=== PATIENT | female | born 1980 | race African-American/Black ===

== ENCOUNTER 2018-09-24 06:42 | Inpatient (IN) | payer SELFPAY ==
[2018-09-24 07:11] LABS: #Basophils 0.1 thou/uL (0.0-0.2); #Lymphocytes 2.1 thou/uL (1.20-3.40); #Monocytes 0.6 thou/uL (0.11-0.59); #Neutrophils 5.8 thou/uL (1.40-6.50); %Eosinophils 0.4 % (0.0-10.0); %Monocytes 7.2 % (0.0-10.0); %Neutrophils 67.4 % (42.0-75.0); Hemoglobin 14.9 g/dL (12.0-16.0); Mean Corpuscular HGB CONC 33.2 g/dL (32.0-36.0); Mean Corpuscular Hemoglobin 30.4 pg (27.0-31.0); Mean Corpuscular Volume 91.3 fL (78.0-98.0); Mean Platelet Volume 7.4 fL (7.4-10.4); Platelet Count 204 thou/uL (130-400); RBC Distribution Width 12.1 % (11.5-14.5); Red Blood Cell (RBC) Count 4.91 mill/uL (4.20-5.40); White Blood Cell (WBC) Count 8.7 thou/uL (4.8-10.8)
[2018-09-24 07:27] LABS: ALT (SGPT) 46 U/L (8-55); AST (SGOT) 84 U/L (5-34); Albumin 4.3 g/dL (3.5-5.0); Alkaline Phosphatase 80 U/L (40-150); Anion Gap 19 mmol/L (10-20); BUN (Urea Nitrogen) 5 mg/dL (7.0-18.7); Bilirubin, Total 0.4 mg/dL (0.2-1.2); CK (CPK) 898 U/L (29-168); Calc. Creatinine Clearance 0 mL/min (70-130); Calcium 9.5 mg/dL (7.8-10.44); Carbon Dioxide 20 mmol/L (22-29); Chloride 100 mmol/L (98-107); Estimated GFR-MDRD Greater than 90; Globulin 3.6 g/dL (2.4-3.5); Glucose 98 mg/dL (70-105); Potassium 3.8 mmol/L (3.5-5.1); Protein, Total 7.9 g/dL (6.0-8.3); Sodium 135 mmol/L (136-145)
[2018-09-24] MEDS ORDERED: Nitroglycerin 0.4 MG TAB 1 EACH ONE (07:35)
--- NOTE | 2018-09-24 07:42 | RAD ---
2 views chest: 09/24/2018 COMPARISON: 02/13/2006 HISTORY: Chest pain and shortness of breath FINDINGS: No pneumothorax, pleural fluid, focal consolidation, or alveolar edema. Stable dextroscolio sis noted at the thoracolumbar junction. IMPRESSION: No focal consolidation or alveolar edema.
[2018-09-24] MEDS ORDERED: Aspirin Chewable 81 MG TAB ONE (07:53)
[2018-09-24] MEDS ORDERED: Enoxaparin Sodium 100 MG/ML SYRINGE ONE ×2 (07:53)
[2018-09-24 08:08] LABS: BHCG - Serum Negative (NEGATIVE); Pregs Control Background? CLEAR/WHITE (CLR/WHITE); Pregs Control Bar Appear? YES (CONTROL BAR)
[2018-09-24] MEDS ORDERED: Nitroglycerin 2% Ointment 1 INCH/1 GM Packet ONE (08:18)
--- NOTE | 2018-09-24 08:43 | CT ---
CTA Angio Chest W WO Con History: Shortness of breath Comparison: Radiograph same day Findings: CT angiogram chest performed after the intravenous administration of contrast. 3-D renderin g provided. No proximal segmental pulmonary arterial filling defect. No pericardial effusion. Upper abdomen is unremarkable. The aortic contour is normal. The lungs are clear. No pneumothorax. No effusion. No airspace consolidation. Clavicles are intact. No acute osseous abnormality. Impression: No pulmonary arterial filling defect. No acute intrathoracic abnormality.
[2018-09-24] MEDS ORDERED: Metoprolol Tartrate 5 MG/5 ML VIAL ONE (08:56)
[2018-09-24] MEDS ORDERED: Nitroglycerin 50 MG/250 ML BOT 250 ML ONE ×2 (09:11→12:04)
[2018-09-24] MEDS ORDERED: Lidocaine 1% (PF) 30 ML VIAL ONE (09:15)
[2018-09-24] MEDS ORDERED: Verapamil 5 MG/2 ML VIAL ONE (09:30)
[2018-09-24] MEDS ORDERED: Heparin 10,000 UNITS/1 ML VIAL ONE (09:30)
[2018-09-24] MEDS ORDERED: Nitroglycerin 100MG/250ML BOT 250 ML ONE (09:30)
[2018-09-24] MEDS ORDERED: Communication Order-Pharmacy FS SCH (09:30)
[2018-09-24] MEDS ORDERED: hydrALAZINE 20 MG/ML VIAL ONE (09:55)
[2018-09-24] MEDS ORDERED: Midazolam HCl 2 mg/2 ml Vial ONE (09:57)
--- NOTE | 2018-09-24 11:14 | CON ---
DATE OF CONSULTATION: 09/24/2018 INDICATION FOR CONSULTATION: This is a 38-year-old female with significant hypertension, chest pain, and abnormal cardiac enzymes with continued bouts of chest pain. HISTORY OF PRESENT ILLNESS: This is a very unfortunate 38-year-old female, who has a history of hypertension, does not seek medical treatment, was told many years ago that she had hypertension. She has been seen in the emergency room before, it was treated and then, she was released, but she has had no followup since that time. She arrives in the emergency room today complaining of chest pain, which has been ongoing for several days. Her blood pressure was 222/149, after medication it was down to 219/145. We will continue to try to manage the blood pressure to get this down. She has been given nitroglycerin, Lovenox, aspirin, and metoprolol in the emergency room. She will be started on nitroglycerin drip. She describes the pain as being heavy and pressure radiating to the back area. EKG does not show any significant ST-segment elevation, but she does have small Q-waves inferiorly. Her troponin I of 6.6 with an MB of 72 and a CK was 898. PAST MEDICAL HISTORY: Significant for hypertension; right breast surgery; and left foot fracture, which she says never healed. She has been homeless at times. SOCIAL HISTORY: She has a boyfriend. She has had increased stress recently due to the boyfriend. She has 3 children, who live with their biological father. Tobacco, she smokes one to one and half packs per day. She drinks socially. She says about 6 to 12 beers on a day at times. She also has marijuana use, which she states she smokes every 2 or 3 weeks. ALLERGIES: NONE. MEDICATIONS: Prior to being seen in the emergency room were none. REVIEW OF SYSTEMS: She complains of increased urination at night. She has had occasional hematuria, occasional hemoptysis. She has had occasional hematemesis. Also, she has also had some hematochezia, at least this is what she is saying. She says she urinates about 7 to 8 times a night sometimes. She has had an episode of syncope about a year ago, she states while she was watching TV. She occasionally has dizziness. Otherwise, 12-point review of systems unremarkable except for what was noted in the history of present illness. PHYSICAL EXAMINATION: GENERAL: Reveals a middle-aged female. VITAL SIGNS: Her blood pressure is 219/145. Her heart rate is 78 and regular. HEENT: Shows head to be normocephalic and atraumatic. Carotid pulses are present. I do not hear any bruits. CHEST: Clear to auscultation. No rales, rhonchi, or wheezing. CARDIOVASCULAR: Reveals a regular rate and rhythm. Normal S1 and S2. I do not hear an S3 nor an S4 nor any significant murmurs, heaves, thrills, bruits, or rubs. ABDOMEN: Shows obesity. Positive bowel sounds are present. No organomegaly or masses are noted. Femoral pulses are present. EXTREMITIES: Showed no clubbing, cyanosis, edema. Pedal pulses are present. NEUROLOGIC: Appears to be intact. SKIN: Warm and dry. DIAGNOSTIC DATA: Her EKG as noted shows a normal sinus rhythm, no acute changes. She has small Q-waves inferiorly. IMPRESSION AND PLAN: 1. Continued chest pain in a patient with abnormal cardiac enzymes, hypertension, or tobacco abuse. She will be advised to undergo cardiac catheterization. It is definite to rule out evidence of underlying coronary artery disease. As I have explained to her the procedure and the risks to include bleeding, infection, possible myocardial infarction, CVA, renal insufficiency, allergic contrast reaction, and even the possibility of . She understands and agrees to proceed. We will plan for cardiac catheterization on urgent basis. 2. History of hypertension. This may need to be dealt with by the primary care service. We will continue to monitor medication. She will need most likely several medication in order to control the blood pressure. She may need financial assistance. 3. History of tobacco abuse. She needs to absolutely stop smoking. 4. History of illicit drug use. I would also advise she stops smoking marijuana. Further recommendations will depend on the results of the cardiac catheterization. Job ID: [id number]
[2018-09-24] MEDS ORDERED: Sodium Chloride 0.9% 1,000 ML IV SCH (12:15)
[2018-09-24] MEDS ORDERED: Nitroglycerin 50 MG/250 ML BOT 250 ML IVPB SCH (12:15)
[2018-09-24] MEDS ORDERED: Iopamidol 370 76% 100 ML VIAL ONE (14:32)
[2018-09-24 17:16] LABS: Troponin I 97.919 ng/mL (< 0.028)
--- NOTE | 2018-09-24 18:05 | PDOC.EVN ---
Event Note - Event Note Event Note: post cardiac cath with PCI. in ccu with nitrro drip for accelerated htn
--- NOTE | 2018-09-24 18:41 | HP ---
[facility] Call Admission for [facility]. HISTORY OF PRESENT ILLNESS: The patient referred to [facility] Hospitalist Service by [facility]. The patient presented with pressured chest pain, 3 days, off and on, radiating to the back of the neck, associated with shortness of breath, sweats, hot flashes. PAST MEDICAL HISTORY: Hypertension, on no medications. ALLERGIES: NO KNOWN DRUG ALLERGIES. PAST SURGICAL HISTORY: No past surgical history. FAMILY HISTORY: Mother had hypertension, CVA, coronary artery disease. SOCIAL HISTORY: Single. Full code. Smokes 1-1/2 packs a day. Smokes marijuana. Drinks occasional alcohol. REVIEW OF SYSTEMS: GENERAL: No dizziness, fainting, fever, or chills. EYES: Blurred vision this morning. No double vision or flashing lights. EAR, NOSE, AND THROAT: No ear pain or drainage. No nasal bleeding. No trouble swallowing. CARDIAC: Prior to this, no chest pain, orthopnea, or paroxysmal nocturnal dyspnea. RESPIRATION: No cough, wheezing, or asthma. GASTROINTESTINAL: Nausea and vomiting with present illness last night. No abdominal pain or diarrhea. GENITOURINARY: She says she has frequency. No blood or pain. MUSCULOSKELETAL: She has swelling in her arms and legs. No pain in her muscles or joints. NEUROLOGIC: No strokes, seizures, or focal weakness. PSYCHIATRIC: No anxiety or depression. SKIN: No bruising, bleeding, or rash. HEME/LYMPH: No tender or swollen lymph nodes in the axilla, inguinal, or cervical area. PHYSICAL EXAMINATION: VITAL SIGNS: Initial blood pressure 228/143, pulse 90, respirations 22, temperature 98.2. HEENT: Examination of her head, eyes, ears, nose, and throat; pupils are equal, round, and reactive to light. Extraocular movements are intact. Sclerae are white. Tympanic membranes are clear. Nose, clear. Oral mucous membranes are wet. NECK: No jugular venous distention, adenopathy, or bruits. CHEST: Clear to auscultation and percussion. HEART: Has a regular rate and rhythm. First and second heart sounds are clear. No murmurs or gallops. ABDOMEN: Soft. Bowel sounds are normal. No hepatosplenomegaly. No mass. No rebound. EXTREMITIES: Trace edema. No cyanosis or clubbing. PULSES: Carotid, radial, femoral, and dorsalis pedis pulses are intact. SKIN: Warm and dry. NEUROLOGIC: Cranial nerves 2 through 12 are intact. Deep tendon reflexes symmetric. Moves all extremities. DIAGNOSTIC DATA: EKG; regular sinus rhythm, no acute ST-T changes, reviewed by me. Chest x-ray; no cardiomegaly, CHF, or infiltrate, reviewed by me. LABORATORY DATA: CBC is normal. Activated clotting time 260. Troponin 6.0, followed by 97.9. CK-MB 72, creatine kinase 898. Sodium 135, potassium 3.8, chloride 100, CO2 of 20, BUN 5, creatinine 0.78. ADMITTING DIAGNOSES: [id number] myocardial infarction, hypertensive urgency, tobacco abuse. The patient is being taken urgently by Dr. Kunal Ayala to the cardiac cardiac catheterization technician. We will follow up. Job ID: [id number]
[2018-09-24 19:17] LABS: Critical Call Chem Troponin I RESULT DECREASING; Troponin I 82.511 ng/mL (< 0.028)
[2018-09-24] MEDS: hydrALAZINE 25 MG TAB PO SCH (19:37)
[2018-09-24] MEDS: Carvedilol 3.125 MG TAB PO SCH (19:38)
[2018-09-24] MEDS: Atorvastatin Calcium 40 MG TAB PO SCH (19:38)
[2018-09-24] MEDS: Ondansetron ODT 4 MG TAB PO PRN (19:45)
[2018-09-24] MEDS: Acetaminophen 325 MG TAB PO PRN (19:45)
[2018-09-24 19:47] VITALS: BMI 30.3
[2018-09-24] MEDS ORDERED: Sodium Chloride 0.9% 250 ML IV PRN (20:02)
[2018-09-24] MEDS: TICAGRELOR 90 MG TABLET PO SCH (20:51)
[2018-09-25 04:52] LABS: #Eosinphils 0.1 thou/uL (0.0-0.7); #Lymphocytes 1.6 thou/uL (1.20-3.40); #Monocytes 0.5 thou/uL (0.11-0.59); #Neutrophils 5.1 thou/uL (1.40-6.50); %Basophils 0.4 % (0.0-1.0); %Eosinophils 1.1 % (0.0-10.0); %Lymphocytes 21.9 % (21.0-51.0); %Monocytes 6.6 % (0.0-10.0); Hemoglobin 13.2 g/dL (12.0-16.0); Mean Corpuscular HGB CONC 32.7 g/dL (32.0-36.0); Mean Corpuscular Hemoglobin 29.9 pg (27.0-31.0); Mean Corpuscular Volume 91.4 fL (78.0-98.0); Mean Platelet Volume 7.7 fL (7.4-10.4); Platelet Count 171 thou/uL (130-400); RBC Distribution Width 12.3 % (11.5-14.5); Red Blood Cell (RBC) Count 4.42 mill/uL (4.20-5.40); White Blood Cell (WBC) Count 7.3 thou/uL (4.8-10.8)
[2018-09-25 05:14] LABS: ALT (SGPT) 53 U/L (8-55); AST (SGOT) 155 U/L (5-34); Albumin 3.6 g/dL (3.5-5.0); Alkaline Phosphatase 65 U/L (40-150); Anion Gap 14 mmol/L (10-20); BUN (Urea Nitrogen) 5 mg/dL (7.0-18.7); Bilirubin, Total 0.6 mg/dL (0.2-1.2); Calc. Creatinine Clearance 162 mL/min (70-130); Calcium 8.7 mg/dL (7.8-10.44); Carbon Dioxide 22 mmol/L (22-29); Chloride 100 mmol/L (98-107); Estimated GFR-MDRD Greater than 90; Globulin 3.1 g/dL (2.4-3.5); Glucose 98 mg/dL (70-105); Potassium 3.3 mmol/L (3.5-5.1); Protein, Total 6.7 g/dL (6.0-8.3); Sodium 133 mmol/L (136-145)
[2018-09-25] MEDS: Acetaminophen 325 MG TAB PO PRN (06:36)
[2018-09-25] MEDS ORDERED: Lisinopril 2.5 MG TAB PO SCH ×2 (09:00→10:45)
--- NOTE | 2018-09-25 09:15 | PDOC.PN ---
- Subjective Encounter Start Date: 09/25/18 Encounter Start Time: 09:13 Subjective: no chest pain , sob - Objective MAR Reviewed: Yes Vital Signs & Weight: Vital Signs (12 hours) Temp Pulse Ox 09/25/18 07:46 100 09/25/18 04:00 98.4 F 09/25/18 00:00 98.1 F Weight Weight 220 lb 10.923 oz Most Recent Monitor Data Heart Rate from ECG 80 NIBP 160/109 NIBP BP-Mean 126 Respiration from ECG 16 SpO2 100 I&O: 09/24/18 09/25/18 09/26/18 06:59 06:59 06:59 Intake Total 2072.4 Output Total 1172 Balance 900.4 Result Diagrams: 09/25/18 04:43 09/25/18 04:43 Radiology Reviewed by me: Yes (increased R/S ratio and inf changes consistant with inf-post infarct) Phys Exam - Physical Examination Neck: no JVD Respiratory: clear to auscultation bilateral Cardiovascular: RRR, no significant murmur Gastrointestinal: soft, positive bowel sounds Musculoskeletal: no edema Dx/Plan (1) NSTEMI (non-ST elevated myocardial infarction) Code(s): I21.4 - NON-ST ELEVATION (NSTEMI) MYOCARDIAL INFARCTION Status: Acute (2) Hypertensive urgency Code(s): I16.0 - HYPERTENSIVE URGENCY Status: Acute (3) Tobacco abuse Code(s): Z72.0 - TOBACCO USE Status: Acute - Plan on iv nitro for BP -: EKG pending -: on coreg, ELEAZAR . statin -: discuss with card * .
[2018-09-25] MEDS: hydrALAZINE 25 MG TAB PO SCH ×3 (09:34→20:18)
[2018-09-25] MEDS: TICAGRELOR 90 MG TABLET PO SCH ×2 (09:34→20:17)
[2018-09-25] MEDS: Carvedilol 3.125 MG TAB PO SCH (09:35)
[2018-09-25 10:00] LABS: Cardiac Risk 2.6 (Less than 4.5)
[2018-09-25] MEDS ORDERED: Carvedilol 3.125 MG TAB PO SCH (10:45)
[2018-09-25] MEDS: Aspirin 81 mg Enteric Coated Tablet PO SCH (10:53)
[2018-09-25] MEDS: Nicotine 21 MG PATCH TOP SCH (10:54)
--- NOTE | 2018-09-25 12:56 | PDOC.CTH ---
Cardiology Progress Note - Subjective The pt seen and examined. No overnight events. No cardiac complaints. - Objective Vital Signs Temp Pulse Pulse Pulse BP BP BP 09/25/18 12:00 98.5 F 09/25/18 10:53 94 139/101 H 09/25/18 09:46 90 110 H 154/102 H 137/87 09/25/18 09:34 101 H 141/117 H 09/25/18 07:46 09/25/18 07:00 98.1 F 09/25/18 04:00 98.4 F Pulse Ox Pulse Ox Pulse Ox 09/25/18 12:00 09/25/18 10:53 09/25/18 09:46 100 100 09/25/18 09:34 09/25/18 07:46 100 09/25/18 07:00 09/25/18 04:00 Weight 220 lb 10.923 oz 09/24/18 09/25/18 09/26/18 06:59 06:59 06:59 Intake Total 2072.4 Output Total 1172 100 Balance 900.4 -100 - Physical Examination General/Neuro: alert & oriented x3 Neck: no JVD present Lungs: CTA Heart: RRR Abdomen: soft Extremities: other: (No edema) - Telemetry Telemetry Rhythm: SR - Labs Result Diagrams: 09/25/18 04:43 09/25/18 04:43 Troponin/CKMB CK-MB (CK-2) 72.0 ng/mL (0-6.6) H* 09/24/18 06:59 Troponin I 82.511 ng/mL (< 0.028) H* 09/24/18 18:27 - Assessment/Plan 1. CAD with s/p LHC with stent x2 in Lt Cx on 09/24/2018 - stable; on Bblocker, ELEAZAR, ASA 81mg qd, and Brilinta 90mg BID; Ezymes positive for WI. 2. HTN urgency - still on NTG drip after increasing Coreg and Lisinopril; will increase Hydralazine 25mg from BID to TID from today 3. Tobacco and ETOH abuse - strongly recommend smoking and ETOH cessation 4. Illicit drug abuse - cessation education given MAR reviewed PPt. seen and eval. by me. She denies cardiac symptoms. The CIE'e are significantly elevated compatible with WI. This is an inferior posterior WI due to the occluded L-circumflex. Continue Brilinta. She has a stenosis in the RCA that may need intervention in the future. Hopefully this will stabalize with medical management if she remains compliant. Chest clear. RRR. Review of Systems - Review of Systems Constitutional: reports: no symptoms reported EENTM: reports: no symptoms reported Respiratory: reports: no symptoms reported Cardiac (ROS): reports: no symptoms reported ABD/GI: reports: no symptoms reported : reports: no symptoms reported Musculoskeletal: reports: no symptoms reported
[2018-09-25] MEDS: Ondansetron ODT 4 MG TAB PO PRN (15:14)
[2018-09-25] MEDS: Carvedilol 6.25 MG TAB PO SCH (20:18)
[2018-09-25] MEDS: Atorvastatin Calcium 40 MG TAB PO SCH (20:18)
[2018-09-26] MEDS: TICAGRELOR 90 MG TABLET PO SCH (08:50)
[2018-09-26] MEDS: Aspirin 81 mg Enteric Coated Tablet PO SCH (08:50)
[2018-09-26] MEDS: Carvedilol 6.25 MG TAB PO SCH (08:50)
[2018-09-26] MEDS: hydrALAZINE 25 MG TAB PO SCH ×2 (08:58→14:23)
[2018-09-26] MEDS ORDERED: Lisinopril 5 MG TAB PO SCH (09:00)
--- NOTE | 2018-09-26 09:00 | PDOC.CTH ---
Cardiology Progress Note - Subjective The pt seen and examined. No overnight events. No cardiac complaints. - Objective Vital Signs Temp Pulse Resp BP Pulse Ox 09/26/18 08:04 98.1 F 87 18 119/57 L 98 09/26/18 03:50 97.9 F 94 14 133/92 H 97 Weight 220 lb 10.923 oz 09/25/18 09/26/18 09/27/18 06:59 06:59 06:59 Intake Total 2072.4 1244 Output Total 1172 570 Balance 900.4 674 - Physical Examination General/Neuro: alert & oriented x3 Neck: no JVD present Lungs: CTA Heart: RRR Abdomen: soft Extremities: other: (No edema) - Telemetry Telemetry Rhythm: SR - Labs Result Diagrams: 09/25/18 04:43 09/25/18 04:43 Troponin/CKMB CK-MB (CK-2) 72.0 ng/mL (0-6.6) H* 09/24/18 06:59 Troponin I 82.511 ng/mL (< 0.028) H* 09/24/18 18:27 - Assessment/Plan 1. CAD , s/p acute posterior TN with s/p LHC with stent x2 in Lt Cx and stenosis in RCA on 09/24/2018 - stable; on Bblocker, ELEAZAR, ASA 81mg qd, and Brilinta 90mg BID; She has a stenosis in the RCA that may need intervention in the future 2. HTN urgency - stable; the pt was strongly recommended to cont her meds 3. Tobacco and ETOH abuse - strongly recommend smoking and ETOH cessation 4. Illicit drug abuse - cessation education given MAR reviewed * From Cardiac standpoint, the pt is stable to d/c home. She will f/u with Dr Ayala' office within 4 wks. Pt. seen and eval. by me.Iagree with the A/P by the [facility]IDE [facility]TER. Chest clear. RRR. No edema. Review of Systems - Review of Systems Constitutional: reports: no symptoms reported EENTM: reports: no symptoms reported Respiratory: reports: no symptoms reported Cardiac (ROS): reports: no symptoms reported ABD/GI: reports: no symptoms reported : reports: no symptoms reported Musculoskeletal: reports: no symptoms reported
[2018-09-26] MEDS ORDERED: Nitroglycerin 0.4 MG TAB (25 Tab Bottle) SL PRN (09:06)
[2018-09-26] MEDS: Nicotine 21 MG PATCH TOP SCH (09:57)
[2018-09-26 16:35] VITALS: BP 126/67; TEMP 98.3
--- NOTE | 2018-09-27 01:37 | DIS ---
DATE OF ADMISSION: 09/24/2018 DATE OF DISCHARGE: 09/26/2018 DISCHARGE DIAGNOSES: As of the followin. Non ST-elevation myocardial infarction. 2. Hypertensive urgency. 3. Tobacco abuse. HOSPITAL COURSE: The patient is a 38-year-old female, who initially presented to the hospital on 09/24. Please refer to H and P for further details with complaints of chest pain. The patient at this time was found to be hypertensive and also had some elevated troponins and some EKG changes. At this time, she was seen by Cardiology. She initially underwent a CTA to rule out any PE, however, there was no PE. The patient did undergo a cardiac catheterization, which required intervention. The patient had successful PCI, PTCA stent to the mid circumflex and also to the RCA, EF of 50%. The patient continues to improve. Her vital signs have been stable. She will follow up with primary care and Cardiology as an outpatient. Due to her insurance purposes, I have provided all her medications. Brilinta will be provided by Cardiology. PHYSICAL EXAMINATION: VITAL SIGNS: 97.5, 79, 17, 100% on room air, 120/76. GENERAL: She is awake, alert, and oriented x3. Does not appear in distress. CV: S1, S2 present. No murmurs, rubs, or gallops. ABDOMEN: Soft and nontender. Bowel sounds are present x2. MEDICATIONS: Her home medications are as of the following. She is going to be on, 1. Brilinta 90 mg b.i.d. provided by the corrugated sheet material sheeter. 2. Hydralazine 25 mg t.i.d. 3. Lisinopril 5 mg daily. 4. Carvedilol 6.25 b.i.d. 5. Atorvastatin 40 mg at bedtime. 6. Aspirin 81 mg daily. The patient was educated on smoking cessation and also on stopping alcohol use. Job ID: [id number]
--- NOTE | 2018-09-27 21:15 | EKG ---
Test Reason : Blood Pressure : / mmHG Vent. Rate : 086 BPM Atrial Rate : 086 BPM P-R Int : 132 ms QRS Dur : 090 ms QT Int : 430 ms P-R-T Axes : 064 -04 170 degrees QTc Int : 514 ms Normal sinus rhythm with sinus arrhythmia Possible Left atrial enlargement Inferior infarct (cited on or before 24-SEP-2018) Prolonged QT Abnormal ECG When compared with ECG of 24-SEP-2018 12:57, (Unconfirmed) Questionable change in initial forces of Inferior leads T wave inversion now evident in Inferior leads Confirmed by Mary CASTREJON ([id number]) on 09/27/2018 9:15:44 PM Referred By: Confirmed By:Mary CASTREJON
--- NOTE | 2018-09-28 16:09 | EKG ---
Test Reason : Blood Pressure : / mmHG Vent. Rate : 078 BPM Atrial Rate : 084 BPM P-R Int : 132 ms QRS Dur : 090 ms QT Int : 406 ms P-R-T Axes : 049 -11 079 degrees QTc Int : 462 ms Normal sinus rhythm with sinus arrhythmia Possible Left atrial enlargement Nonspecific ST and T wave abnormality Abnormal ECG No ST elevation/LA Confirmed by CHETNA GODOY M.D. ([id number]), digital editor MAYRA BETTENCOURT ([id number]) on 09/28/2018 4:09:23 PM Referred By: Confirmed By:CHETNA GODOY M.D.
--- NOTE | 2018-09-28 16:10 | EKG ---
Test Reason : Blood Pressure : / mmHG Vent. Rate : 081 BPM Atrial Rate : 081 BPM P-R Int : 142 ms QRS Dur : 086 ms QT Int : 406 ms P-R-T Axes : -05 052 -11 degrees QTc Int : 471 ms Normal sinus rhythm Cannot rule out Inferior infarct , age undetermined Abnormal ECG #2 unchanged Confirmed by WALT Estes, CHETNA ([id number]), sound editor MAYRA BETTENCOURT ([id number]) on 09/28/2018 4:09:49 PM Referred By: Confirmed By:CHETNA GODOY M.D.
== END 2018-09-26 17:37 | disposition home or self-care (01) | DRG 249 ==
LOC: ERS 06:42 → SDC 09:55 → CCU 11:53 → 2NO 09-25 18:15
PROVIDERS: ADMIT Internal Medicine Cardiovascular Disease; ATTEND Internal Medicine Cardiovascular Disease
PROC: 02703EZ Dilation of Coronary Artery, One Artery with Two Intraluminal Devices, Percutaneous Approach (ICD-10-PCS; principal; 2018-09-24)
PROC: 4A023N7 Measurement of Cardiac Sampling and Pressure, Left Heart, Percutaneous Approach (ICD-10-PCS; 2018-09-24)
PROC: B2151ZZ Fluoroscopy of Left Heart using Low Osmolar Contrast (ICD-10-PCS; 2018-09-24)
PROC: B2111ZZ Fluoroscopy of Multiple Coronary Arteries using Low Osmolar Contrast (ICD-10-PCS; 2018-09-24)
DX: I21.4 Non-ST elevation (NSTEMI) myocardial infarction (principal); I16.0 Hypertensive urgency; I10 Essential (primary) hypertension; F17.210 Nicotine dependence, cigarettes, uncomplicated; F12.90 Cannabis use, unspecified, uncomplicated; I25.10 Atherosclerotic heart disease of native coronary artery without angina pectoris
CPT/HCPCS: 36415; 71046; 71275; 80053; 80061; 82550; 82553; 84484; 84703; 85025; 85347; 92928; 93005; 93010; 93458; 93798; 94760; 96372; 96374; 96375; 99152; 99153; C1769; C1876; J0360; J1644; J1650; J2001; J2250; Q0162; Q9967

== ENCOUNTER 2019-01-16 20:47 | Inpatient (IN) | payer SELFPAY ==
[~2019-01-16 20:47] MED LIST: ISOVUE-370 76%-LOCM 1 ML ONE
[2019-01-16] MEDS ORDERED: Fentanyl 100 MCG/2 ML VIAL ONE (20:52)
[2019-01-16] MEDS ORDERED: fentaNYL Citrate/PF 2,000 MCG in Sodium Chloride 0.9% 60 ML IV SCH (20:55)
[2019-01-16 21:01] LABS: Actual Bicarbonate (HCO3a) 16.4 mEq/L (22-28); Analyzer IN Cardio ER; Base Excess (BEa) -9.4 mEq/L (-2.0 to +3.0); CO2 Tension 35.6 mmHg (35.0-45.0); Calcium, Ionized 1.11 mmol/L (1.12-1.30); Carboxyhemoglobin (COHb) 1.5 gm% (0.0-3.0); Hemoglobin (Hb) 13.3 g/dL (12.0-16.0); O2 Tension (PaO2) 338.5 mmHg (80.0-100.0); Potassium - ABG Lab 3.73 mmol/L (3.70-5.30); pH, Arterial 7.28 (7.35-7.45)
--- NOTE | 2019-01-16 21:06 | RAD ---
RADIOGRAPH CHEST 1 VIEW: Supine DATE: 01/16/2019 HISTORY: 38-year-old female in respiratory distress and ventricular fibrillation. Status post intubation. FINDINGS: There is no pulmonary edema. There is an endotracheal tube with distal tip at the level of the clavic ular heads, 8 cm superior to the jesus. There is an esophagogastric tube which courses inferior to the diaphragm, distal tip outside of the [id number]. Supine positioning makes this study insensiti ve for the detection of pneumothorax. There is an airspace opacity at the right lung base silhouetting the right hemidiaphragm. This could be atelectasis, pneumonia, or aspiration. IMPRESSION: 1. Right lower lobe airspace opacity. 2. Status post intubation with endotracheal tube (at thoracic inlet) and esophagogastric tube.
[2019-01-16 21:14] LABS: #Basophils 0.1 thou/uL (0.0-0.2); #Eosinphils 0.1 thou/uL (0.0-0.7); #Lymphocytes 1.4 thou/uL (1.20-3.40); #Monocytes 0.2 thou/uL (0.11-0.59); #Neutrophils 1.9 thou/uL (1.40-6.50); %Basophils 1.4 % (0.0-1.0); %Eosinophils 2.1 % (0.0-10.0); %Lymphocytes 37.9 % (21.0-51.0); %Monocytes 6.2 % (0.0-10.0); %Neutrophils 52.4 % (42.0-75.0); Hemoglobin 13.1 g/dL (12.0-16.0); Mean Corpuscular HGB CONC 33.9 g/dL (32.0-36.0); Mean Corpuscular Hemoglobin 30.7 pg (27.0-31.0); Mean Corpuscular Volume 90.6 fL (78.0-98.0); Mean Platelet Volume 7.3 fL (7.4-10.4); Platelet Count 166 thou/uL (130-400); RBC Distribution Width 12.4 % (11.5-14.5); Red Blood Cell (RBC) Count 4.28 mill/uL (4.20-5.40); White Blood Cell (WBC) Count 3.7 thou/uL (4.8-10.8)
[2019-01-16 21:31] LABS: Bilirubin Negative (Negative); Blood, Urine Trace (Negative); Clarity Clear (Clear); Glucose, Urine (Dipstick) Normal (Negative); Leukocyte Negative Leu/uL (Negative); Mucous/LPF Rare LPF (<2+); Nitrite Negative (Negative); Protein, Urine (Dipstick) 100 mg/dL (Neg-Trace); RBC/HPF 0-3 HPF (0-3); Squamous Epithelial 0-3 HPF (0-3)
[2019-01-16 21:37] LABS: Bacteria/HPF Rare-Few HPF (None Seen)
[2019-01-16 21:38] LABS: Amphetamine Not Detected (NotDetected); Barbiturates Screen Not Detected (NotDetected); Benzodiazepine Screen Not Detected (NotDetected); Cocaine Metabolite Screen Not Detected (NotDetected); Medtox Control Line Valid? VALID (VALID); Medtox Reader # READER 4; Methadone Not Detected (NotDetected); Methamphetamine Detected (NotDetected); Opiate Screen Not Detected (NotDetected); Oxycodone Screen Not Detected (NotDetected); Phencyclidine (PCP) Not Detected (NotDetected); THC/Cannabinoid Screen Detected (NotDetected); Tricyclic Screen Not Detected (NotDetected)
[2019-01-16 21:39] LABS: ALT (SGPT) 272 U/L (8-55); AST (SGOT) 436 U/L (5-34); Acetaminophen Less than 6.0 mcg/mL (10.0-30.0); Albumin 3.4 g/dL (3.5-5.0); Alcohol Less than 10 mg/dL (Less than 10); Alkaline Phosphatase 63 U/L (40-110); Anion Gap 19 mmol/L (10-20); BUN (Urea Nitrogen) 8 mg/dL (7.0-18.7); Bilirubin, Total 0.5 mg/dL (0.2-1.2); CK (CPK) 97 U/L (29-168); Calc. Creatinine Clearance 0 mL/min (70-130); Calcium 8.1 mg/dL (7.8-10.44); Carbon Dioxide 19 mmol/L (22-29); Chloride 101 mmol/L (98-107); Estimated GFR-MDRD Greater than 90; Globulin 2.6 g/dL (2.4-3.5); Glucose 76 mg/dL (70-105); Potassium 3.8 mmol/L (3.5-5.1); Salicylate Less than 8.0 mg/dL (15.0-30.0); Sodium 135 mmol/L (136-145)
--- NOTE | 2019-01-16 21:51 | CT ---
CT BRAIN NONCONTRAST: DATE: 01/16/2019 HISTORY: 38-year-old female with altered mental status, status post fall. FINDINGS: There is no evidence of acute intra-axial or extra-axial hemorrhage. There is no midline shift or any other mass effect. There is no extra-axial fluid collection. There is no evidence of obstructive hydrocephalus. Calvarium is intact. The upper half of the left maxillary sinus is totally opacified, contiguous with severely, nearly totally opacified nasal cavity. The lower halves of the maxillary sinuses are not included on the images. There is severe mucosal thickening throughout multiple bilate ral ethmoid air cells. There is severe almost total opacification of left sphenoid air cell. Multiple small polyps are present in the right maxillary sinus. Right sphenoid air cell is relatively clear. Bilateral tympanomastoid cavities are grossly clear. The nasopharyngeal airway is totally opacified with fluid, secretions. IMPRESSION: 1. No acute intracranial findings. 2. Paranasal sinus disease. 3. Secretions filling the nasopharyngeal airway.
--- NOTE | 2019-01-16 21:53 | CT ---
CT CERVICAL SPINE NONCONTRAST: DATE: 01/16/2019 HISTORY: cervical trauma FINDINGS: There are no jumped or perched facets. There is no evidence of acute fracture. The vertebral body hei ghts are maintained. There is no prevertebral soft tissue swelling. IMPRESSION: No evidence of acute fracture or acute traumatic subluxation.
[2019-01-16 21:59] LABS: CKMB 1.7 ng/mL (0-6.6)
[2019-01-16 22:05] LABS: Puncture Site LRA
[2019-01-16] MEDS ORDERED: Piperacillin/Tazobactam 4.5 GM VIAL ONE (22:07)
[2019-01-16] MEDS ORDERED: Sodium Chloride 0.9% 100 ML ONE (22:07)
--- NOTE | 2019-01-16 22:13 | CT ---
CT ABDOMEN WITH CONTRAST CT PELVIS WITH CONTRAST: DATE: 01/16/2019 HISTORY: 38-year-old female with distended abdomen. Unconscious. TECHNIQUE: IV injection of iodinated contrast media: Administered Oral contrast media:Not administered FINDINGS: Liver: No focal solid mass. Spleen: No splenomegaly.. Pancreas: No mass or surrounding fat stranding.. Adrenals: No mass.. Kidneys: No hydronephrosis or enhancement abnormalities.. Ureters: No dilation. Bladder: Empty with Abarca catheter. Abdominal aorta: No aneurysm. Small bowel: No dilation. Colon: No adjacent fat stranding. Appendix: No dilation or adjacent fat stranding.. Free air: None. Free fluid: None. Esophagogastric tube distal tip at proximal gastric body. Moderate size region of opacification at posterior base of right lower lobe. Much smaller such densit y at posterior base of left lower lobe. 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 IMPRESSION: 1. No major acute pathology identified within abdominal cavity or pelvic cavity.. 2. 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 Recomme nd general surgery consultation on nonemergent basis. 3. Moderate sized consolidation at posterior base of right lower lobe. This could be atelectasis, asp iration, or pneumonia. Atelectasis is favored.
[2019-01-16] MEDS ORDERED: Propofol 1,000 MG/100 ML VIAL IV ONE (22:33)
[2019-01-16 23:03] LABS: BHCG - Serum Negative (NEGATIVE); Pregs Control Background? CLEAR/WHITE (CLR/WHITE); Pregs Control Bar Appear? YES (CONTROL BAR)
--- NOTE | 2019-01-16 23:20 | PDOC.FPRHP ---
- History of Present Illness Chief Complaint: ROSC s/p vfib History of Present Illness: Patient is a 38F with PMHx of 2 cardiac stents s/p OK in September 2018, HTN, HLD that presented to the ED via EMS with ROSC s/p vfib and shock. Patient is intubated and sedated throughout the encounter. Patients boyfriend reports that she has been sick for about 1 week with a cough , subjective fever, and chills. He states that he went to the store today to buy cough syrup and when he got back, patient took a large gulp of the cough syrup before her muscles tensed and then she slumped downward to the floor. He states that he called 911, did not feel a pulse, and began CPR before EMS arrived. Per report patient did not have pulse when EMS arrived, she was quickly hooked up to the monitor, found to be in vfib, and shocked. She reportedly then achieved ROSC and was quickly intubated. Patient has known hx of marijuana use, but when boyfriend asked about UDS positive for meth, he denied knowing that she used any other substances than marijuana. Per patient's boyfriend patient's parents are both , she had one child that was taken in a CPS case 6-7 years ago. He states that she has a sister, but she is estranged. He was counseled to try to find her number so she could be contacted. ED Course: 2mg lorazepam, 5mcg/kg/min diprivan, fentanyl, 1L NS (s/p 800ml via EMS), 750mg levaquin, 1 g vanc - Allergies/Adverse Reactions Allergies Allergy/AdvReac Type Severity Reaction Status Date / Time No Known Allergies Allergy Verified 01/17/19 02:23 - Home Medications Medication Instructions Recorded Confirmed Type Carvedilol [Coreg] 6.25 mg PO BID #60 tab 09/26/18 01/17/19 Rx Lisinopril [Zestril] 5 mg PO DAILY #30 tab 09/26/18 01/17/19 Rx hydrALAZINE [Apresoline] 25 mg PO TID #90 tab 09/26/18 01/17/19 Rx Clopidogrel Bisulfate [Plavix] 1 tab PO DAILY 01/17/19 01/17/19 History - History PMHx:2 cardiac stents s/p OK in September 2018, HTN, HLD PSHx: x1 FHx: mother-aortic aneurysm Social: 1ppd smoker, drinks 3-4 40oz malt liquor/day per boyfriend, uses marijuana - Review of Systems ROS unobtainable: due to endotracheal tube General: reports: fever/chills Respiratory: reports: cough, congestion Gastrointestinal: denies: nausea, vomiting, diarrhea - Vital signs BP: [224/153] HR: [113] RR: [18] Tmax: [97.6] Pox: [100]% on [ventilator] Wt: [97.7kg] - Physical Exam Constitutional: other (intubated) HEENT: PERRLA, MMM Neck: supple, trachea midline Chest: no lesions Heart: normal S1/S2, pulses present, other (tachycardic) Lungs: other (course breath sounds throughout, intubated) Abdomen: soft Musculoskeletal: normal structure, normal tone Neurological: other (GCS 3T) Skin: no rash/lesions, good turgor, other (feet dirty bilaterally) Heme/Lymphatic: no unusual bruising or bleeding, no purpura FMR H&P: Results - Labs Result Diagrams: 01/16/19 21:06 01/16/19 21:06 Lab results: WBC 3.7 thou/uL (4.8-10.8) L 01/16/19 21:06 Hgb 13.1 g/dL (12.0-16.0) 01/16/19 21:06 Hct 38.8 % (36.0-47.0) 01/16/19 21:06 MCV 90.6 fL (78.0-98.0) 01/16/19 21:06 Plt Count 166 thou/uL (130-400) 01/16/19 21:06 Neutrophils % 52.4 % (42.0-75.0) 01/16/19 21:06 ABG pH 7.28 (7.35-7.45) L 01/16/19 20:56 ABG pCO2 35.6 mmHg (35.0-45.0) 01/16/19 20:56 ABG pO2 338.5 mmHg (80.0-100.0) H 01/16/19 20:56 Sodium 135 mmol/L (136-145) L 01/16/19 21:06 Potassium 3.8 mmol/L (3.5-5.1) 01/16/19 21:06 Chloride 101 mmol/L (98-107) 01/16/19 21:06 Carbon Dioxide 19 mmol/L (22-29) L 01/16/19 21:06 BUN 8 mg/dL (7.0-18.7) 01/16/19 21:06 Creatinine 0.81 mg/dL (0.6-1.1) 01/16/19 21:06 Glucose 76 mg/dL (70-105) 01/16/19 21:06 Lactic Acid 3.3 mmol/L (0.5-2.2) H 01/16/19 22:43 Calcium 8.1 mg/dL (7.8-10.44) 01/16/19 21:06 Total Bilirubin 0.5 mg/dL (0.2-1.2) 01/16/19 21:06 AST 436 U/L (5-34) H 01/16/19 21:06 ALT 272 U/L (8-55) H 01/16/19 21:06 Alkaline Phosphatase 63 U/L (40-110) 01/16/19 21:06 Creatine Kinase 97 U/L (29-168) 01/16/19 21:06 CK-MB (CK-2) 1.7 ng/mL (0-6.6) 01/16/19 21:06 Serum Total Protein 6.0 g/dL (6.0-8.3) 01/16/19 21:06 Albumin 3.4 g/dL (3.5-5.0) L 01/16/19 21:06 Urine Ketones 80 mg/dL (Negative) A 01/16/19 21:12 Urine Blood Trace (Negative) A 01/16/19 21:12 Urine Nitrite Negative (Negative) 01/16/19 21:12 Ur Leukocyte Esterase Negative Rizwana/uL (Negative) 01/16/19 21:12 Urine RBC 0-3 HPF (0-3) 01/16/19 21:12 Urine WBC 4-6 HPF (0-3) A 01/16/19 21:12 Ur Squamous Epith Cells 0-3 HPF (0-3) 01/16/19 21:12 Urine Bacteria Rare-Few HPF (None Seen) 01/16/19 21:12 - EKG Interpretation EKG: previous inferior/lateral infarct present, repeat ekg shows nsr - Radiology Interpretation Chest x-ray Status: report reviewed by me (RLL pna vs atelectasis) CT scan - abdomen Status: report reviewed by me (severe stenosis of celiac artery, moderate consolidation at RLL) FMR H&P: A/P - Problem List (1) Ventricular fibrillation Current Visit: Yes Status: Acute Code(s): I49.01 - VENTRICULAR FIBRILLATION (2) Methamphetamine abuse Current Visit: Yes Status: Acute Code(s): F15.10 - OTHER STIMULANT ABUSE, UNCOMPLICATED (3) Marijuana abuse Current Visit: Yes Status: Acute Code(s): F12.10 - CANNABIS ABUSE, UNCOMPLICATED (4) HTN (hypertension) Current Visit: Yes Status: Acute Code(s): I10 - ESSENTIAL (PRIMARY) HYPERTENSION (5) History of heart artery stent Current Visit: Yes Status: Acute Code(s): Z95.5 - PRESENCE OF CORONARY ANGIOPLASTY IMPLANT AND GRAFT (6) Tobacco abuse Current Visit: No Status: Acute Code(s): Z72.0 - TOBACCO USE (7) Cardiac arrest Current Visit: Yes Status: Acute Code(s): I46.9 - CARDIAC ARREST, CAUSE UNSPECIFIED - Plan Patient is a 38F with PMHx of 2 cardiac stents s/p OK in September 2018, HTN, HLD admitted for ROSC s/p vfib and cardiac arrest #Cardiac arrest s/p vfib and ROSC -Unclear etiology at this time. UDS+ meth/thc, CXR suspicious for RLL pna, patient has hx of alcohol abuse and alcohol undetectable on admission -Blood, urine cultures pending -continue iv levaquin vanc for suspected RLL pna -Repeat EKG shows evidence of previous infarct, nsr without signs of acute ACS. Trop after CPR indeterminate, continue to trend trops and monitor with repeat EKG -Consult critical consult, appreciate recs -cardiology consult, appreciate recs -Palliative consult for help with discussing with boyfriend about possible medical decision maker #HTN -IV hydralazine, labetalol prn for now -Restart home meds when appropriate #Hx of cardiac stents -patient takes clopidogrel, will try to give through ng tube at this time -appreciate cardiology recs #Etoh abuse -ASE protocol #UDS +: Meth/marijuana -boyfriend denies knowing anything about meth use -will continue to monitor Diet: NPO DVT ppx: lovenox Dispo: critical care for further monitoring, cardiology consult, ase protocol for alcohol withdrawal FMR H&P: Upper Level - Pertinent history 38 yo F here via EMS s/p ROSC after defibrillation and intubation by EMS en route. Per boyfriend, she has had a fever and cough for the past few days. She was lying in bed when she tensed up and then became unconscious. He immediately started CPR and called EMS. EMS found the patient to be in Vfib and provided 1 shock which achieved ROSC. Upon arrival in ED, vitals where stable. Imaging was concerning for RLL PNA. Blood and urine cultures were drawn and pt was given Vanc and Levaquin. Other lab abnormalities were significant for elevated LFT and indeterminate trop. EKG had no ST or T wave changes. Per her boyfriend, she drinks 2-3 40 oz beers daily. UDS was positive for THC and methamphetamine. PMHx CAD Previous NSTEMI HTN Surgical hx Cardiac cath 09/25/18 with circumflex and RCA stent Social Hx of tobacco abuse, cigarette use, marijuana use, and methamphetamine use - Pertinent findings See management internship note for full ROS, PE, vitals, and labs ROS per boyfriend. General complains of fever CV Denies CP or palpitation Resp complains of cough GI denies n/v/d/c or abdominal pain denies increased frequency or dysuria PE General intubated and sedated HEENT NCAT CV tachycardic, no murmur Resp coarse rhonchi throughout Abd soft, normal bowel sounds Extremities no edema, equal pedal pulses Neuro PERRLA, cough reflex intact, withdraws from pain - Plan Date/Time: 01/16/19 2320 IKal DO, have evaluated this patient and agree with findings/plan as outlined by management internship resident. Pertinent changes/additions are listed here. 1.Cardiac arrest s/p ROSC -Unclear etiology at this time. DDx includes methamphetamine use, PNA, ACS, etoh withdrawal -Blood and urine cultures are pending. Continue abx to cover possible PNA -EKG does not show acute findings concerning for ACS. Trop was drawn after CPR was performed and is indeterminate as would be expected. Continue to trend trops with repeat EKG. -Consult critical care and cardiology -Palliative consult for goals of care and to identify decision maker. 2.HTN -Restart home meds when appropriate to take PO. IV BP control until that time. 3.CAD -Restart home meds when able to take PO. 4.Etoh abuse -ASE protocol PPx Lovenox Diet NPO Code Full
[2019-01-16] MEDS ORDERED: Morphine 4 MG/ML VIAL ONE (23:29)
[2019-01-17] MEDS ORDERED: Diazepam 5 MG TAB PO PRN (00:02)
[2019-01-17] MEDS ORDERED: Lorazepam 2 MG/ML VIAL ONE (00:07)
[2019-01-17] MEDS ORDERED: Diazepam 5 MG TAB PO SCH (00:15)
[2019-01-17] MEDS ORDERED: Thiamine HCl 200 MG/2 ML VIAL IM SCH (00:15)
[2019-01-17] MEDS ORDERED: Morphine 2 MG/ML SYRINGE SLOW IVP PRN (00:58)
[2019-01-17] MEDS ORDERED: Fentanyl BOLUS 250 ML IVPB PRN (00:58)
[2019-01-17] MEDS ORDERED: Propofol BOLUS 1,000 MG/100 ML VIAL IV PRN (00:58)
[2019-01-17] MEDS ORDERED: DISCONTINUE PREVIOUS NARCOTIC PAIN MEDICATIONS AND BENZODIAZEPINES FS SCH (00:58)
[2019-01-17] MEDS ORDERED: Ondansetron ODT 4 MG TAB SL PRN (00:59)
[2019-01-17] MEDS ORDERED: Acetaminophen 325 MG TAB PO PRN (00:59)
[2019-01-17] MEDS ORDERED: Ondansetron PF 4 MG/2 ML Vial IVP PRN (00:59)
[2019-01-17 01:02] LABS: Troponin I 0.117 ng/mL (< 0.028)
[2019-01-17 01:04] LABS: Magnesium 1.5 mg/dL (1.6-2.6)
[2019-01-17 01:08] LABS: Phosphorus 1.9 mg/dL (2.3-4.7)
[2019-01-17] MEDS ORDERED: Magnesium Sulfate 3 GM in Sodium Chloride 0.9% 100 ML IVPB SCH (01:15)
[2019-01-17] MEDS: Lactated Ringer's 1,000 ML IV SCH ×3 (01:33→19:57)
[2019-01-17 01:58] VITALS: BMI 29.2
[2019-01-17] MEDS: Sodium Chloride 0.9% 1,000 ML IV SCH ×2 (02:16→07:57)
[2019-01-17] MEDS: Lorazepam 2 MG/ML VIAL SLOW IVP PRN ×3 (04:06→23:02)
[2019-01-17] MEDS ORDERED: Labetalol HCl 100 MG/20 ML VIAL SLOW IVP PRN (04:07)
[2019-01-17] MEDS ORDERED: hydrALAZINE 20 MG/ML VIAL SLOW IVP PRN (04:07)
[2019-01-17] MEDS: Propofol 1,000 MG/100 ML VIAL IV PRN ×3 (05:32→22:32)
[2019-01-17] MEDS ORDERED: Vancomycin HCl 1.5 GM in Sodium Chloride 0.9% 250 ML 300 ML IVPB SCH (06:00)
[2019-01-17 06:27] LABS: #Lymphocytes 1.4 thou/uL (1.20-3.40); #Monocytes 0.3 thou/uL (0.11-0.59); #Neutrophils 4.8 thou/uL (1.40-6.50); %Basophils 0.4 % (0.0-1.0); %Eosinophils 0.3 % (0.0-10.0); %Lymphocytes 21.1 % (21.0-51.0); %Monocytes 4.3 % (0.0-10.0); Hemoglobin 11.5 g/dL (12.0-16.0); Mean Corpuscular HGB CONC 33.5 g/dL (32.0-36.0); Mean Corpuscular Hemoglobin 30.9 pg (27.0-31.0); Mean Corpuscular Volume 92.1 fL (78.0-98.0); Mean Platelet Volume 7.5 fL (7.4-10.4); Platelet Count 157 thou/uL (130-400); RBC Distribution Width 12.4 % (11.5-14.5); Red Blood Cell (RBC) Count 3.71 mill/uL (4.20-5.40); White Blood Cell (WBC) Count 6.5 thou/uL (4.8-10.8)
--- NOTE | 2019-01-17 06:27 | PDOC.FM ---
- Subjective Subjective: No overnight events. Pt intubated and sedated. - Objective MAR Reviewed: Yes Vital Signs & Weight: Vital Signs (12 hours) Temp Pulse Resp BP Pulse Ox 01/17/19 06:00 18 01/17/19 04:00 18 01/17/19 02:46 77 137/93 H 01/17/19 02:00 98.6 F 01/17/19 01:15 18 99 Weight Weight 97.7 kg Most Recent Monitor Data Heart Rate from ECG 59 NIBP 100/73 NIBP BP-Mean 82 Respiration from ECG 16 SpO2 100 I&O: 01/15/19 01/16/19 01/17/19 06:59 06:59 06:59 Output Total 510 Balance -510 Result Diagrams: 01/17/19 06:00 01/17/19 06:00 Phys Exam - Physical Examination Intubated and sedated Respiratory: no wheezing Cardiovascular: RRR, no significant murmur Gastrointestinal: soft, positive bowel sounds Musculoskeletal: no edema, pulses present Skin: no rash Dx/Plan - Plan Plan: Patient is a 38F with PMHx of 2 cardiac stents s/p ID in September 2018, HTN, HLD admitted for ROSC s/p vfib and cardiac arrest Cardiac arrest s/p ROSC - Unclear etiology at this time. UDS+ meth/thc, CXR suspicious for RLL pna, patient has hx of alcohol abuse and alcohol undetectable on admission - CT favors atelectasis over pna - Intubated and sedated - Blood, urine cultures pending - Procal 0.06 - mIVF @135 - Continue IV Levaquin, Vanc for suspected RLL pna - Repeat EKG shows evidence of previous infarct, nsr without signs of acute ACS. 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
[2019-01-17] MEDS ORDERED: CCU Electrolyte Replacement 1 EACH FS ONE (06:36)
[2019-01-17] MEDS ORDERED: Potassium Phosphate 15 MMOL in Sodium Chloride 0.9% 250 ML 250 ML IV PRN (06:39)
[2019-01-17] MEDS ORDERED: Magnesium Oxide 400 MG TAB PO PRN ×2 (06:39)
[2019-01-17] MEDS ORDERED: Potassium Chloride 40 MEQ in Sodium Chloride 0.9% 250 ML 250 ML IVPB PRN (06:39)
[2019-01-17] MEDS ORDERED: PHOS-NAK 1 PKT PACK PO PRN ×2 (06:39)
[2019-01-17] MEDS ORDERED: Magnesium 2 GM/50 ML 2 GM in Premix Bag 1 BAG IVPB PRN (06:39)
[2019-01-17] MEDS ORDERED: Potassium Phosphate 9 MMOL in Sodium Chloride 0.9% 100 ML IVPB PRN (06:39)
[2019-01-17] MEDS ORDERED: CCU ELECTROLYTE REPLACEMENT PROTOCOL FS PRN (06:39)
[2019-01-17] MEDS ORDERED: Potassium Phosphate 12 MMOL in Sodium Chloride 0.9% 250 ML 250 ML IV PRN (06:39)
[2019-01-17] MEDS ORDERED: Potassium Chloride 40 MEQ in Premix Bag 1 BAG IVPB PRN (06:39)
[2019-01-17 06:41] LABS: Lactic Acid 1.3 mmol/L (0.5-2.2)
[2019-01-17 06:48] LABS: ALT (SGPT) 202 U/L (8-55); AST (SGOT) 415 U/L (5-34); Albumin 2.9 g/dL (3.5-5.0); Alkaline Phosphatase 49 U/L (40-110); Anion Gap 16 mmol/L (10-20); BUN (Urea Nitrogen) 7 mg/dL (7.0-18.7); Bilirubin, Total 0.4 mg/dL (0.2-1.2); Calc. Creatinine Clearance 174 mL/min (70-130); Calcium 7.6 mg/dL (7.8-10.44); Carbon Dioxide 18 mmol/L (22-29); Chloride 104 mmol/L (98-107); Estimated GFR-MDRD Greater than 90; Globulin 2.6 g/dL (2.4-3.5); Glucose 72 mg/dL (70-105); Potassium 4.1 mmol/L (3.5-5.1); Protein, Total 5.5 g/dL (6.0-8.3); Sodium 134 mmol/L (136-145)
[2019-01-17 06:51] LABS: Troponin I 0.106 ng/mL (< 0.028)
[2019-01-17 07:12] LABS: Actual Bicarbonate (HCO3a) 16.6 mEq/L (22-28); Base Excess (BEa) -5.5 mEq/L (-2.0 to +3.0); Calcium, Ionized 1.08 mmol/L (1.12-1.30); Carboxyhemoglobin (COHb) 1.2 gm% (0.0-3.0); Hemoglobin (Hb) 12.8 g/dL (12.0-16.0); O2 Tension (PaO2) 153.1 mmHg (80.0-100.0); Potassium - ABG Lab 4.17 mmol/L (3.70-5.30); pH, Arterial 7.46 (7.35-7.45)
[2019-01-17 07:25] LABS: Puncture Site RBRACH
[2019-01-17] MEDS: Famotidine/PF 20 mg/2ml Vial SLOW IVP SCH ×2 (07:50→19:54)
[2019-01-17 07:54] LABS: Magnesium 2.7 mg/dL (1.6-2.6); Phosphorus 2.6 mg/dL (2.3-4.7)
[2019-01-17] MEDS: Enoxaparin Sodium 40 MG/0.4 ML SYRINGE SC SCH (07:54)
[2019-01-17] MEDS: Multivitamin W/ Minerals 1 TAB PO SCH (10:07)
[2019-01-17] MEDS: hydrALAZINE 25 MG TAB PO SCH ×3 (10:12→19:54)
[2019-01-17] MEDS: Carvedilol 6.25 MG TAB PO SCH ×3 (10:12→19:54)
[2019-01-17] MEDS: Lisinopril 5 MG TAB PO SCH ×2 (10:13→11:10)
[2019-01-17] MEDS: Folic Acid 1 MG TAB PO SCH (10:15)
[2019-01-17] MEDS: Clopidogrel Bisulfate 75 MG TAB PO SCH (10:15)
--- NOTE | 2019-01-17 10:44 | PRG ---
DATE OF SERVICE: 01/17/2019 Ms. Mosqueda is a 38-year-old black female who had a hospital cardiac arrest. She was resuscitated with ROSC and intubated, brought to our ER. She is currently in the ICU. The exact etiology of her arrest is unknown. She does have a history of coronary artery disease, but also has a history of substance abuse. Her urine drug screen was positive for methamphetamine. In the event, she is currently stable, though sedated on a ventilator. We will continue to follow with the engineering mathematician. Job ID: [id number]
--- NOTE | 2019-01-17 17:03 | CON ---
DATE OF CONSULTATION: 01/17/2019 REASON FOR CONSULTATION: Ventricular fibrillation [id number] arrest. HISTORY OF PRESENT ILLNESS: Ms. Mosqueda is a 38-year-old woman, who was brought to [facility] via EMS for an rph-vf-mfiaygiy VF arrest. She had not been feeling well for about a week prior with a cough, fever, and chills. Her boyfriend reports he brought her some cough syrup and which she took it. She slumped over. He called 911, did not feel pulse and began CPR. EMS arrived within 2 to 4 minutes per his report. They found she was in VF and was defibrillated. They achieved ROSC and was quickly intubated. She was then brought to the hospital for further evaluation. The patient has a known history of coronary artery disease with myocardial infarction in September of 2018, at which point, she underwent left heart catheterization and PCI with Dr. Ayala. She was stented in the circumflex, but there was also disease in the RCA. At that point, her ejection fraction was 50%. She only required 30 days of Plavix post stenting. Since arrival, her lab work showed indeterminate troponins likely due to the resuscitation efforts and CPR. An echocardiogram was performed and shows an ejection fraction of 30% to 35%, otherwise fairly normal echo. The patient is currently intubated and sedated. Boyfriend is at bedside and answers history questions as best as possible. REVIEW OF SYSTEMS: Unable to complete due to the patient being intubated and sedated. PAST MEDICAL HISTORY: 1. Coronary artery disease with prior [place] in September 2018 with two stents. 2. Hypertension. 3. Hyperlipidemia. 4. Obesity. 5. Alcohol abuse. 6. Tobacco use. FAMILY HISTORY: Positive for aortic aneurysm with mother. SOCIAL HISTORY: Positive tobacco use, one pack a day. Reportedly drinks 3 to 4, 40-ounce beers per day and also uses marijuana. HOME MEDICATION LIST: 1. Plavix 75 mg daily. 2. Zestril 5 mg daily. 3. Coreg 6.25 mg b.i.d. 4. Hydralazine 25 mg t.i.d. ALLERGIES: NO KNOWN DRUG ALLERGIES. OBJECTIVE: VITAL SIGNS: Blood pressure 113/82, respirations 12 on mechanical ventilation, heart rate 71, and oxygen saturation is 100% on 30% FiO2. GENERAL: The patient is sedated, but responsive to voice. She has not followed commands. She is in no apparent distress, resting in bed. She remains intubated. HEART: Rate is irregularly irregular. PMI is nondisplaced. LUNGS: Clear to auscultation bilaterally. Right lower lobe is somewhat diminished. ABDOMEN: Obese, soft, and nontender without palpable masses. Hepatojugular reflux is negative. EXTREMITIES: Warm and dry to touch without clubbing, cyanosis, or edema. DATABASE: EKG and telemetry review shows sinus rhythm. There is ventricular fibrillation arrest with defibrillation [id number], but no further ventricular arrhythmias have been seen since arrival to the hospital. Echocardiogram on 01/16/2019, ejection fraction 30% to 35% (previously 50% in September of 2018). Hematology was reviewed and is unremarkable. Chemistry was reviewed. Creatinine is 0.69. Magnesium was low and currently now high at 2.7. Serial troponins were conducted and indeterminate with a maximum 0.131. IMPRESSION: 1. Ventricular fibrillation arrest [id number] and witnessed. 2. Possible encephalopathy. 3. History of coronary artery disease with prior myocardial infarction in the recent past with stenting of the circumflex. Ejection fraction of 50% at that time. 4. Positive for methamphetamine in urine drug screen. 5. History of alcohol abuse. 6. Hypertension. 7. Cardiomyopathy, newly diagnosed with ejection fraction of 30% to 35%. RECOMMENDATIONS: Unfortunately, Ms. Mosqueda has suffered a ventricular fibrillation arrest. She recently was diagnosed with coronary artery disease and had a myocardial infarction with two stents. There was a vessel disease in the RCA as well. I would recommend consideration of ischemic workup once she is medically stable to rule out occlusive coronary artery disease as a cause of her arrest. For now, we will continue to monitor for any recurrent arrhythmias and once she is extubated and out of critical care, we can consider her as a candidate for an ICD, if there is no need for revascularization. Thank you for allowing me to participate in the care of this patient. I will re-evaluate on Sunday and check on the patient's status at that time. Job ID: [id number]
--- NOTE | 2019-01-17 17:48 | CON ---
DATE OF CONSULTATION: PRIMARY CARE DOCTOR: Unknown. PRIMARY MOTION PICTURE FILM EXAMINER: Tami Ayala MD REASON FOR CARDIOLOGY CONSULT: previous non-STEMI. HISTORY OF PRESENT ILLNESS: Ms. Mosqueda is a 38-year-old female with a significant history of status post myocardial infarction with a bare metal stent placement in September 2018, hypertension, hyperlipidemia, and illicit drug abuse. The patient was seen at Dr. Tami Ayala' office in October 2018. At that time, she denied any chest pain, dizziness, lightheadedness, shortness of breath, or any other cardiac complaints. At that time, she preferred to follow up with her primary care doctor for future cardiovascular management due to the patient's finance. EKG at Dr. Ayala' office shows sinus rhythm with no significant ST-segment or T-wave inversion. The patient's Brilinta was stopped that day and changed to Plavix due to the king of the medication. The patient was given Brilinta sample at the previous discharge time due to her finance. At this moment, the patient is on intubation with vent sedation, so the patient's information was obtained from the patient's medical record. According to the patient's medical record, the patient's boyfriend reports that she was sick for about one week with cough and subjective fever and chill. Yesterday after she took the cough syrup, she slumped down to the floor and her boyfriend called 911. Also, she was started on CPR before EMS arrived due to there are no pulses. She was found to have a VFib and was shocked by EMS at the site. The patient was intubated and transferred to [facility] for further evaluation and treatment. The patient's drug test showed the patient has positive marijuana and methamphetamine, and the patient is an ex-smoker. The patient underwent cardiac catheterization with a bare metal stent placement x2 in the left circumflex. Also that catheterization showed the patient had stenosis in the RCA. The patient's echocardiogram was done today and the result is pending at this moment. PAST MEDICAL HISTORY: 1. Coronary artery disease with status post bare metal stent placement in September 2018. 2. Hypertension. 3. Tobacco, EtOH abuse. 4. Illicit drug abuse. SURGICAL HISTORY: x1 and bare metal stent placement x2 in September 2018. FAMILY HISTORY: The patient's mother has a history of aortic aneurysm, hypertension, CVA, and coronary artery disease. SOCIAL HISTORY: She is single. She is living with her boyfriend. She has one child, who lives well. She smokes three or four cigarettes per day according to last Dr. Ayala' office note. She smokes marijuana and drinks three to four 40-ounces malt liquor a day and she smokes one pack a day per her boyfriend. ALLERGIES: SHE HAS NO KNOWN DRUG ALLERGIES. HOME MEDICATIONS: 1. Carvedilol 6.25 mg twice a day. 2. Hydralazine 25 mg 3 times a day. 3. Lisinopril 5 mg once a day. 4. Plavix 75 mg once a day. 5. Aspirin 81 mg once a day. 6. Atorvastatin 40 mg once a day. REVIEW OF SYSTEMS: Noncontributory. The patient is in intubation at this moment. PHYSICAL EXAMINATION: VITAL SIGNS: Blood pressure 126/83, heart rate is 67 and sinus rhythm, respiratory rate of 12, and O2 saturation 97% on the vent. GENERAL: According to nurse, the patient opens her eyes with mild sedation, unable to reassess at this moment. HEENT: Head, normocephalic and atraumatic. Eyes, unable to assess at this moment. ENT and mouth, oral and nasal mucosa moist without lesion. NECK: Supple. Normal range of motion. No JVD. RESPIRATORY: Very diminished at the bases. No wheezing, rales, or rhonchi noted. CARDIOVASCULAR: Regular rate and rhythm. Normal S1 and S2. There is no S3 or S4. No significant murmur, hives, or thrill noted. 2+ pulses in the bilateral upper and lower extremities. No edema in the lower extremities. Carotid pulses are present without bruits or thrill. ABDOMEN: Soft, nontender. No masses palpated. Bowel sounds are present, but hypoactive. SKIN: Warm and dry. No arrhythmia, lesion, or rash noted. MUSCULOSKELETAL: Unable to assess this moment. NEUROLOGIC: Unable to assess at this moment due to the sedation. LABORATORY DATA: WBC 6.5, hemoglobin 11.5, hematocrit is 34.2, platelet 157. Sodium 134, potassium 4.1, BUN 7, creatinine 0.67, glucose 72. Lactic acid is 1.3, but the previous one is 3.3. Calcium 7.6, phosphorus 1.9, magnesium 1.5 and 2.7 at this moment. AST 415, ALT 202, CK 97. Troponin is 0.131, 0.117, and 0.106. Brain CT shows no acute intracranial finding, paranasal sinus disease. Chest x-ray shows right lower lobe airspace opacity. Cervical spine CT showed no evidence of acute fracture. The abdomen and pelvis CT scan shows no major acute pathology identified with abdominal cavity or pelvic cavity. Severe stenosis at the origin of celiac artery with evidence of median arcuate ligament syndrome. Recommend General Surgery consultation on emergency basis. Moderate-size consolidation of the posterior right lower lobe, this could be atherosclerosis or aspiration pneumonia. ASSESSMENT AND PLAN: 1. Cardiac arrest secondary to ventricular fibrillation and status post ROSC. The patient's vital signs stable at this moment with current medication. She is now on IV blood pressure medicine. She is on the ticagrelor, Diprivan and IV fluids. EP consult was requested already to Dr. Landaverde for further evaluation and treatment for the history of ventricular fibrillation. 2. Coronary artery disease with status post bare metal stent placement in September 2018. The patient's condition is stable at this moment. She is on Plavix 75 mg once a day and she is on the carvedilol 6.25 mg once a day. At this moment, the aspirin 81 mg once a day and atorvastatin will be resumed from today. We would like to continue to monitor on telemetry. 3. Hypertension. Blood pressure is stable at this moment with current medication. 4. Elevated liver function panel with severe stenosis at the celiac arteries, which is managed by primary care doctor. It is not an emergent basis at this moment. 5. Hyperlipidemia. We will resume statin medicine for this patient. 6. Tobacco, EtOH, or illicit drug abuse. Once the patient's condition is stable, we would like to give cessation education to the patient and family member. Thank you very much for allowing the Cardiology Service to participate in the care of this patient. We will follow along the patient's care team and make further recommendations as appropriate. Job ID: [id number]
--- NOTE | 2019-01-17 18:50 | EKG ---
Test Reason : Blood Pressure : / mmHG Vent. Rate : 070 BPM Atrial Rate : 070 BPM P-R Int : 160 ms QRS Dur : 084 ms QT Int : 460 ms P-R-T Axes : 069 016 069 degrees QTc Int : 496 ms Normal sinus rhythm Possible Lateral infarct , age undetermined Inferior-posterior infarct (cited on or before 24-SEP-2018) Abnormal ECG When compared with ECG of 25-SEP-2018 10:58, ST now depressed in Inferior leads T wave inversion no longer evident in Inferior leads T wave inversion no longer evident in Lateral leads Confirmed by DYLAN BRADLEY, DR. Worthington ([id number]) on 01/17/2019 6:49:43 PM Referred By: ANA MAYBERRY Confirmed By:DR. Ander RICHARDSON MD
[2019-01-17] MEDS: Atorvastatin Calcium 40 MG TAB PO SCH (19:54)
[2019-01-17] MEDS ORDERED: FLU VACC QS2019-20(6MOS UP)/PF 60 MCG/0.5 ML SYRINGE IM ONE (21:00)
--- NOTE | 2019-01-17 22:29 | CON ---
DATE OF CONSULTATION: 01/17/2019 INDICATION FOR CONSULTATION: A 38-year-old female with known coronary artery disease who had an outside hospital ventricular fibrillation arrest. This unfortunate 38-year-old female was seen by me earlier this year back in September. On September 24, she underwent angioplasty and stent placement for totally occluded left circumflex. Two stents were placed in the circumflex, a 2.75 x 24 mm stent as well as a 2.75 x 12 mm stent. These are dilated up to approximately 2.8 to 2.9 mm in diameter. There was no significant residual stenosis. However, she did have a second obtuse marginal branch, which also had about a 40% stenosis as well as a right coronary stenosis about 70%. These were non-drug coated stents and she was on her Plavix for at least a month. She then was at home apparently and recently she had the flu-like syndrome. She had fevers, coughing, and her significant other went to the store to get her some cough medications. I believe he said she had some 2 different types. When she took the cough medicine, then she apparently just collapsed, he started CPR, called 911. When they arrived she was in ventricular fibrillation and she was brought to the emergency room. She was cardioverted fortunately and returned back to a sinus rhythm. She has had no further arrhythmias since being here. She did require intubation, however, and he is at the bedside giving the history as he can; however, she does appear to be awake, but whether or not she is fully alert is unclear, but she remains relatively stable, but she is hypotensive at this time. The cardiac enzymes were still on the low side for someone who would have suffered a myocardial infarction and most likely this is due to the CPR that was undertaken. Her EKG shows a right bundle branch, but no other significant abnormality. She did have an echocardiogram performed today, which showed an ejection fraction about 30-35 percent, whereas at the time of the cardiac catheterization in September, ejection fraction was estimated about 50%. PAST MEDICAL HISTORY: Significant for coronary artery disease, hypertension, dyslipidemia, history of tobacco abuse, alcohol use, and also obesity. FAMILY HISTORY: Some history of vascular disease and aneurysm in the mother, I believe. SOCIAL HISTORY: She continues to smoke. She also drinks a significant amount of alcohol a day and uses marijuana. At this time, her drug screen was positive for methamphetamines and she may have had marijuana laced with some type of crack cocaine or some other amphetamines is unclear. Her boyfriend was unaware other than just having the marijuana. It depends on which type of cross medicine she had. She may have had actually some false-positive in her laboratory data depending on which cough syrup was given, whether or not this had pseudoephedrine or some other ingredients. MEDICATIONS: Prior to admission included: 1. Plavix 75 mg daily. I am not sure she is still taking this. 2. Coreg 3.25 mg b.i.d. 3. Hydralazine 25 mg three times daily. 4. Zestril 5 mg daily. ALLERGIES: SHE HAS NO KNOWN ALLERGIES. REVIEW OF SYSTEMS: Not obtainable, but her significant other mainly just says she had been doing relatively well since she developed this recent upper respiratory tract infection, cough, and had a fever. She may have had a flu-like syndrome. PHYSICAL EXAMINATION: GENERAL: Reveals a middle-aged female, who is on the ventilator. She does appear to be awake, but it is not clear whether not she is fully intact. VITAL SIGNS: Her blood pressure earlier was 107/74, has continued to decrease down to 94/63. She remains on pressors, also heart rate was in the 80s, respiratory rate 16. HEENT: Shows the head to be normocephalic and atraumatic. NECK: Carotid pulses are present. I did not hear any significant bruits. CHEST: There is upper airway noise associated with the ventilator. Her chest is actually clear to auscultation. I do not hear any significant rales, rhonchi, or wheezing. CARDIOVASCULAR: Reveals a regular rhythm with occasional ectopy making this somewhat irregular. ABDOMEN: Obese with positive bowel sounds. No organomegaly or masses were noted. Bowel sounds are decreased. EXTREMITIES: Show no clubbing or cyanosis. No significant edema was noted. IMAGING: EKG shows sinus rhythm with a right bundle-branch block. LABORATORY DATA: Shows a hemoglobin of 11.5, WBC of 6.5, platelet count was 157,000. Her BUN was 7 with a creatinine 0.69, potassium is 4.1, blood sugar was 72. Her liver functions are elevated. ALT was 202 and AST was 415. Calcium was 7.6. Her troponin I on admission was 0.131, has continued to decline down, it is now at 0.106. IMPRESSION: 1. Out of hospital arrest with ventricular fibrillation with immediate cardiopulmonary resuscitation obtained. Hope there will be no significant sequela associated with this later on. 2. History of coronary artery disease. She is status post angioplasty and stent placed in the left circumflex. She did have some other stenosis noted 6 months ago, but this appeared to be stable. Once she is stable, she will need to undergo repeat cardiac catheterization to determine whether or not the stenosis in the right coronary artery has increased or worsened. She may need to undergo angioplasty and stent placed into this vessel also. 3. A decrease in left ventricular systolic function compared to her recent cardiac catheterization with ejection fraction of 50%. She is now down to 30% to 35%. This is somewhat concerning. If she has had a history of drug abuse, this may be an etiology. 4. Positive drug screen for methamphetamines as well as marijuana. 5. Possible encephalopathy associated with the ventricular fibrillation and cardiac arrest. 6. History of hypertension. Obviously she is on the low side now. We will continue to monitor this and is to continue pressures as needed. 7. History of tobacco abuse. 8. History of alcohol abuse. She will be advised to completely stop both of these habits. 9. Please note that we have requested a consultation by the guidance counselor when she is more stable and a cardiac catheterization. Most likely she will need to undergo electrophysiological evaluation and possibly also implantation of a defibrillator since she did have ventricular fibrillation, which was documented during the outside event. Job ID: [id number]
--- NOTE | 2019-01-17 23:33 | CON ---
DATE OF CONSULTATION: 01/17/2019 HISTORY OF PRESENT ILLNESS: Bing Mosqueda is a 38-year-old female who suffered an [id number] arrest. She was intubated, resuscitated. She is starting to wake up, actually made eye contact with me. She had been seen by the streetcar operator and phonograph cartridge assembler. Unfortunately, she is a chronic drug user. She has a history of coronary artery disease at this young age with an SC in September of this year leading to a left circumflex stent. She had disease in the right coronary. PAST MEDICAL HISTORY: Remarkable for 1. Hypertension. 2. Lipid disorder. 3. Tobacco use. 4. Alcohol abuse. 5. Obesity. 6. Drug abuse. FAMILY HISTORY: Positive for vascular disease. PHYSICAL EXAMINATION: VITAL SIGNS: Heart rate 60, blood pressure 104/72, respiratory rate is per mechanical ventilation. HEENT: Pupils react. She made eye contact with me. She would not follow commands for me though. Sclerae are anicteric. NECK: Supple. No lymphadenopathy. LUNGS: Clear. HEART: Regular rhythm. S1 and S2 are normal. ABDOMEN: Soft and nontender. EXTREMITIES: Without clubbing, cyanosis, or edema. LABORATORY DATA: Lab work is remarkable for white count 6.5, hemoglobin 11.5, platelets 157,000. Drug screen is positive for methamphetamine and marijuana. Electrolytes are unremarkable. IMPRESSION: Sudden cardiac in the face of methamphetamine use, marijuana use, and with a history of coronary artery disease. I wanted to just move forward with serial exams to see if she recovers neurologically before we consider her extubation. CRITICAL CARE TIME: 30 minutes. Job ID: [id number] MTDD
[2019-01-18] MEDS: Lorazepam 2 MG/ML VIAL SLOW IVP PRN ×2 (01:07→06:53)
[2019-01-18] MEDS ORDERED: Diazepam 5 MG TAB PO PRN (04:00)
[2019-01-18] MEDS: Lactated Ringer's 1,000 ML IV SCH ×3 (04:05→20:18)
--- NOTE | 2019-01-18 06:01 | PDOC.FM ---
- Subjective Subjective: No overnight events. Now following simple commands and moving all extremities. Still intubated and on sedation. - Objective MAR Reviewed: Yes Vital Signs & Weight: Vital Signs (12 hours) Temp Pulse Resp BP Pulse Ox 01/18/19 04:00 99.2 F 12 01/18/19 02:06 66 115/80 01/18/19 02:00 12 01/18/19 00:25 71 101/73 01/18/19 00:00 98.8 F 12 01/17/19 22:00 12 01/17/19 21:39 55 L 97/62 01/17/19 20:00 98.5 F 12 100 01/17/19 19:54 60 104/72 01/17/19 18:38 60 104/72 01/17/19 18:00 12 Weight Admit Weight 97.522 kg Weight 97.7 kg Most Recent Monitor Data Heart Rate from ECG 68 NIBP 130/89 NIBP BP-Mean 102 Respiration from ECG 15 SpO2 100 I&O: 01/16/19 01/17/19 01/18/19 06:59 06:59 06:59 Intake Total 1571.1 Output Total 510 960 Balance -510 611.1 Result Diagrams: 01/18/19 07:55 01/18/19 07:55 Phys Exam - Physical Examination Constitutional: NAD Intubated, opens eyes to voice Respiratory: no wheezing, clear to auscultation bilateral Cardiovascular: RRR, no significant murmur Gastrointestinal: soft, non-tender, positive bowel sounds Musculoskeletal: pulses present Neurological: moves all 4 limbs Dx/Plan - Plan Plan: Patient is a 38F with PMHx of 2 cardiac stents s/p [place] in September 2018, HTN, HLD admitted for ROSC s/p vfib and cardiac arrest Cardiac arrest s/p ROSC - Intubated and sedated. Possible extubation today - Blood, urine cultures pending - mIVF @135 - Continue IV Levaquin, Vanc for suspected RLL pna - Cardiology consult, appreciate recs - Plan for cardiac Cath once stable. 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, rec gen surg on nonemergent basis Hypomagnesemia, resolved Hypophosphatemia, resolved - CCU electrolyte protocol in place Transaminitis, improving - likely shock liver, continue to trend Elevated Lactic Acid, resolved HTN - IV hydralazine, labetalol prn for now - Restart home meds once tolerating PO Hx of cardiac stents - Continue Plavix through NG tube until tolerating PO - Appreciate cardiology recs Alcohol use disorder - ASE protocol UDS +: Meth/marijuana Diet: NPO DVT ppx: lovenox GI ppx: Famotadine Addendum - Attending - Attending Attestation Date/Time: 01/18/19 4409 I personally evaluated the patient and discussed the management with Dr. Harris. I agree with the History, Examination, Assessment and Plan documented above with any addition or exceptions noted below. Pt opens eyes and moves extremities. May be able to be extubated today. Pt will have a cath and possible aicd later in the hospitalization when stable.
[2019-01-18] MEDS: Propofol 1,000 MG/100 ML VIAL IV PRN (06:53)
[2019-01-18 07:51] LABS: Actual Bicarbonate (HCO3a) 21.7 mEq/L (22-28); CO2 Tension 37.1 mmHg (35.0-45.0); Calcium, Ionized 1.14 mmol/L (1.12-1.30); Carboxyhemoglobin (COHb) 0.4 gm% (0.0-3.0); Hemoglobin (Hb) 11.1 g/dL (12.0-16.0); O2 Tension (PaO2) 109.4 mmHg (80.0-100.0); Potassium - ABG Lab 3.86 mmol/L (3.70-5.30); pH, Arterial 7.38 (7.35-7.45)
[2019-01-18 07:53] LABS: ALV-art Gradient 58.125 (0-20); Puncture Site RRA
[2019-01-18 08:15] LABS: Hemoglobin 11.8 g/dL (12.0-16.0); Mean Corpuscular HGB CONC 33.7 g/dL (32.0-36.0); Mean Corpuscular Hemoglobin 30.7 pg (27.0-31.0); Mean Corpuscular Volume 91.1 fL (78.0-98.0); Mean Platelet Volume 7.7 fL (7.4-10.4); Platelet Count 126 thou/uL (130-400); RBC Distribution Width 12.6 % (11.5-14.5); Red Blood Cell (RBC) Count 3.83 mill/uL (4.20-5.40); White Blood Cell (WBC) Count 7.3 thou/uL (4.8-10.8)
[2019-01-18] MEDS: Lisinopril 5 MG TAB PO SCH (08:38)
[2019-01-18] MEDS: Folic Acid 1 MG TAB PO SCH (08:38)
[2019-01-18] MEDS: Multivitamin W/ Minerals 1 TAB PO SCH (08:38)
[2019-01-18] MEDS: Carvedilol 6.25 MG TAB PO SCH ×2 (08:38→20:18)
[2019-01-18] MEDS: Aspirin 81 mg Enteric Coated Tablet PO SCH (08:38)
[2019-01-18] MEDS: Thiamine 100 MG TAB PO SCH (08:38)
[2019-01-18] MEDS: hydrALAZINE 25 MG TAB PO SCH ×3 (08:39→20:19)
[2019-01-18] MEDS: Clopidogrel Bisulfate 75 MG TAB PO SCH (08:39)
[2019-01-18] MEDS: Magnesium Oxide 400 MG TAB PO SCH (08:41)
[2019-01-18 08:51] LABS: ALT (SGPT) 146 U/L (8-55); AST (SGOT) 96 U/L (5-34); Albumin 2.9 g/dL (3.5-5.0); Alkaline Phosphatase 50 U/L (40-110); Anion Gap 14 mmol/L (10-20); BUN (Urea Nitrogen) Less than 4 mg/dL (7.0-18.7); Bilirubin, Total 0.2 mg/dL (0.2-1.2); Calc. Creatinine Clearance 182 mL/min (70-130); Carbon Dioxide 19 mmol/L (22-29); Chloride 104 mmol/L (98-107); Estimated GFR-MDRD Greater than 90; Globulin 2.8 g/dL (2.4-3.5); Glucose 68 mg/dL (70-105); Magnesium 2.1 mg/dL (1.6-2.6); Phosphorus 3.3 mg/dL (2.3-4.7); Potassium 4.2 mmol/L (3.5-5.1); Protein, Total 5.7 g/dL (6.0-8.3); Sodium 133 mmol/L (136-145)
[2019-01-18] MEDS: Famotidine/PF 20 mg/2ml Vial SLOW IVP SCH ×2 (08:57→20:18)
[2019-01-18] MEDS: Enoxaparin Sodium 40 MG/0.4 ML SYRINGE SC SCH (08:58)
--- NOTE | 2019-01-18 09:54 | EKG ---
Test Reason : Blood Pressure : / mmHG Vent. Rate : 074 BPM Atrial Rate : 074 BPM P-R Int : 160 ms QRS Dur : 102 ms QT Int : 446 ms P-R-T Axes : 071 -12 035 degrees QTc Int : 495 ms Normal sinus rhythm Lateral infarct , age undetermined Inferior-posterior infarct , age undetermined Abnormal ECG Confirmed by HAYLIE GASPAR D.O. ([id number]), food expeditor JORGE LUIS TURONG ([id number]) on 01/18/2019 9:53:34 AM Referred By: Confirmed By:HAYLIE GASPAR D.O.
--- NOTE | 2019-01-18 10:12 | EKG ---
Test Reason : Blood Pressure : / mmHG Vent. Rate : 095 BPM Atrial Rate : 380 BPM P-R Int : 000 ms QRS Dur : 108 ms QT Int : 402 ms P-R-T Axes : 072 001 067 degrees QTc Int : 505 ms Sinus rhythm Lateral infarct , age undetermined Inferior-posterior infarct , age undetermined Prolonged QT Abnormal ECG Confirmed by HAYLIE GASPAR D.O. ([id number]), restaurant expeditor JORGE LUIS TRUONG ([id number]) on 01/18/2019 10:11:39 AM Referred By: Confirmed By:HAYLIE GASPAR D.O.
[2019-01-18 10:22] LABS: Eosinophils 3 % (0-10); Large Platelets SLIGHT; Lymphocytes 25 % (21-51); MDiff Complete? YES; Monocytes 8 % (0-10); Neutrophil 61 % (42-75); Platelet Morphology Comment Appears Decreased; Reactive Lymphocytes 3 % (0-10)
--- NOTE | 2019-01-18 11:16 | PDOC.CPN ---
- Subjective Date: 01/18/19 Time: 12:57 Interval history: pt is awake but confused after recent arrest. Extubated - Objective Allergies/Adverse Reactions: Allergies Allergy/AdvReac Type Severity Reaction Status Date / Time No Known Allergies Allergy Verified 01/17/19 02:23 Visit Medications: Current Medications Aspirin (Ecotrin) 81 mg PO DAILY [facility] Last Admin: 01/18/19 08:38 Dose: 81 mg Atorvastatin Calcium (Lipitor) 40 mg PO HS [facility] Last Admin: 01/17/19 19:54 Dose: 40 mg Carvedilol (Coreg) 6.25 mg PO BID [facility] Last Admin: 01/18/19 08:38 Dose: 6.25 mg Clopidogrel Bisulfate (Plavix) 75 mg PO DAILY [facility] Last Admin: 01/18/19 08:39 Dose: 75 mg Enoxaparin Sodium (Lovenox) 40 mg SC 0900 [facility] Last Admin: 01/18/19 08:58 Dose: 40 mg Famotidine (Pepcid) 20 mg SLOW IVP BID [facility] Last Admin: 01/18/19 08:57 Dose: 20 mg Folic Acid (Folvite) 1 mg PO DAILY [facility] Last Admin: 01/18/19 08:38 Dose: 1 mg Hydralazine HCl (Apresoline) 10 mg SLOW IVP Q4H PRN PRN Reason: SBP Greater Than 180 Hydralazine HCl (Apresoline) 25 mg PO TID [facility] Last Admin: 01/18/19 08:39 Dose: 25 mg Fentanyl Citrate 2,000 mcg/ (Sodium Chloride) 100 mls @ 0 mls/hr IV INF [facility]; Protocol Stop: 02/15/19 20:55 Last Admin: 01/17/19 11:51 Dose: 100 mls Lactated Ringer's (Lactated Ringer's) 1,000 mls @ 135 mls/hr IV .Q7H25M [facility] Last Admin: 01/18/19 10:12 Dose: Not Given Levofloxacin 750 mg/ Device 150 mls @ 100 mls/hr IVPB Q24HR [facility] Last Admin: 01/17/19 22:33 Dose: 150 mls Fentanyl Citrate (Fentanyl Bolus) 250 mls @ 0 mls/hr IVPB PRN PRN PRN Reason: Breakthrough pain/agitation Stop: 02/16/19 00:58 Potassium Chloride 40 meq/ (Sodium Chloride) 270 mls @ 135 mls/hr IVPB ASDIR PRN PRN Reason: FOR SERUM K+ 2.5 - 3.5 Potassium Chloride 40 meq/ (Device) 100 mls @ 50 mls/hr IVPB ASDIR PRN PRN Reason: FOR SERUM K+ 2.5 - 3.5 Magnesium Sulfate 1 gm/ Sodium (Chloride) 102 mls @ 102 mls/hr IV PRN PRN PRN Reason: MAG LEVEL 1.4 - 2.0 Magnesium Sulfate 2 gm/ Device 50 mls @ 50 mls/hr IVPB ASDIR PRN PRN Reason: MAGNESIUM < 1.4 Potassium Phosphate 9 mmol/ (Sodium Chloride) 103 mls @ 25.75 mls/hr IVPB ASDIR PRN PRN Reason: Phosphate 1.0-1.8 Potassium Phosphate 12 mmol/ (Sodium Chloride) 254 mls @ 63.5 mls/hr IV ASDIR PRN PRN Reason: Serum phosphate 0.5-0.9 Potassium Phosphate 15 mmol/ (Sodium Chloride) 255 mls @ 63.75 mls/hr IV ASDIR PRN PRN Reason: Serum Phos < 0.5 Dexmedetomidine HCl 200 mcg/ (Sodium Chloride) 50 mls @ 0 mls/hr IVPB INF [facility]; Protocol Last Admin: 01/17/19 16:21 Dose: 50 mls Iron/Minerals/Multivitamins (Theragran M) 1 tab PO DAILY [facility] Last Admin: 01/18/19 08:38 Dose: 1 tab Labetalol HCl (Normodyne) 10 mg SLOW IVP Q4H PRN PRN Reason: SBP Greater Than 180 Lisinopril (Zestril) 5 mg PO DAILY [facility] Last Admin: 01/18/19 08:38 Dose: 5 mg Lorazepam (Ativan) 2 mg SLOW IVP Q1H PRN PRN Reason: Breakthrough agitation Stop: 02/16/19 00:58 Last Admin: 01/18/19 06:53 Dose: 2 mg Lorazepam (Ativan) 2 mg SLOW IVP Q15M PRN PRN Reason: Seizures Magnesium Oxide (Magnesium Oxide) 400 mg PO DAILY [facility] Last Admin: 01/18/19 08:41 Dose: 400 mg Magnesium Oxide (Magnesium Oxide) 400 mg PO BIDPRN PRN PRN Reason: FOR SERUM MAG 1.4 - 2.0 Magnesium Oxide (Magnesium Oxide) 800 mg PO PRN PRN PRN Reason: FOR SERUM MAG < 1.4 Miscellaneous Medication (Phos-Nak) 1 pkt PO TIDPRN PRN PRN Reason: FOR PHOS LEVEL 1.0 - 1.8 Miscellaneous Medication (Phos-Nak) 2 pkt PO TIDPRN PRN PRN Reason: FOR PHOS LEVEL 0.5 - 1.0 Morphine Sulfate (Morphine) 2 mg SLOW IVP Q1H PRN PRN Reason: BREAKTHROUGH PAIN/Agitation Stop: 02/16/19 00:58 Discontinue Previous Narcotic Pain Medications And Benzodiazepines 1 each FS .ONE [facility] Stop: 02/16/19 00:58 Ccu Electrolyte (Replacement Protocol) 0 each FS PRN PRN PRN Reason: FOR ELECTROLYTE REPLACEMENT Potassium Chloride (K-Dur) 40 meq PO ASDIR PRN PRN Reason: FOR SERUM K+ 2.5 - 3.5 Potassium Chloride (Klor-Con) 40 meq PER TUBE ASDIR PRN PRN Reason: FOR SERUM K+ 2.5-3.5 Propofol (Diprivan) 1,000 mg IV INF PRN; Protocol PRN Reason: TO ACHIEVE GOAL RASS Stop: 02/16/19 00:58 Last Admin: 01/18/19 06:53 Dose: 1,000 mg Propofol (Diprivan Bolus) 20 mg IV Q5MIN PRN PRN Reason: BREAKTHROUGH AGITATION Stop: 02/16/19 00:58 Sodium Chloride (Flush - Normal Saline) 10 ml IVF Q12HR [facility] Last Admin: 01/18/19 08:58 Dose: 10 ml Sodium Chloride (Flush - Normal Saline) 10 ml IVF PRN PRN PRN Reason: Saline Flush Thiamine HCl (Thiamine) 100 mg PO DAILY [facility] Last Admin: 01/18/19 08:38 Dose: 100 mg Vital Signs & Weight: Vital Signs Temp Pulse Resp BP Pulse Ox 01/18/19 08:48 98 01/18/19 08:39 104 H 139/98 H 01/18/19 08:38 104 H 139/98 H 01/18/19 08:00 12 01/18/19 07:57 67 01/18/19 07:19 100 01/18/19 07:00 98.5 F 01/18/19 06:00 12 01/18/19 04:00 99.2 F 12 01/18/19 02:06 66 115/80 01/18/19 02:00 12 01/18/19 00:25 71 101/73 01/18/19 00:00 98.8 F 12 Admit Weight 215 lb Weight 215 lb 6.266 oz - Physical Exam General: appears well, no apparent distress, other (mild confusion) Neck: supple neck Cardiac: no murmur, regular rate, regular rhythm Lungs: normal exam Abdomen: soft - Labs Result Diagrams: 01/18/19 07:55 01/18/19 07:55 Troponin/CKMB CK-MB (CK-2) 1.7 ng/mL (0-6.6) 01/16/19 21:06 Troponin I 0.106 ng/mL (< 0.028) H 01/17/19 06:00 - Assessment/Plan Assessment/Plan: Out of hopsital arrest CAD S/p stent Hypoxic encephalopathy Pt doing very very given recent events Treat emdically for now Plan on angio next week Would like her mentation to improve prior to angio
--- NOTE | 2019-01-18 12:46 | RAD ---
PORTABLE AP CHEST XRAY: HISTORY: On ventilator. COMPARISON: 01/16/2019. FINDINGS: Nasogastric tube is again noted in place. The endotracheal tube is not well visualized and may have been removed. Cardiac silhouette is magnified by projection. Pulmonary vasculature is within normal limits. Lungs are clear. IMPRESSION: 1. Improved aeration at the right lung base. The lungs are clear on today's exam. Findings may be related to improvement in atelectasis or pneumonia at the right lung base. POS: OFF
[2019-01-18] MEDS: Atorvastatin Calcium 40 MG TAB PO SCH (20:18)
--- NOTE | 2019-01-18 20:44 | PRG ---
DATE OF SERVICE: 01/18/2019 SUBJECTIVE: Bing Mosqueda is awake and alert. Her minute volume is less than 10 L a minute. She had no significant secretions. OBJECTIVE: VITAL SIGNS: Stable overnight. LUNGS: Clear. HEART: Regular rhythm. ABDOMEN: Soft. EXTREMITIES: Without asymmetry. IMAGING DATA: Chest radiograph this morning was clear. LABORATORY DATA: White count 7.3, hemoglobin 11.8, platelets 126. Sodium 133, potassium 4.2, chloride 104, bicarb 19, BUN less than 4, creatinine 0.66. IMPRESSION: Status post sudden cardiac . It is likely related to her cardiomyopathy and ongoing drug use. Surprisingly, she suffered no severe neurological sequelae. I felt she was a candidate for extubation. This has been done successfully. She has had no postextubation stridor or respiratory distress. We will continue to follow with Cardiology. CRITICAL CARE TIME: 30 minutes. Job ID: [id number] MTDD
[2019-01-19] MEDS ORDERED: Lorazepam 2 MG/ML VIAL ONE ×2 (04:09→04:44)
[2019-01-19] MEDS: Lactated Ringer's 1,000 ML IV SCH (04:15)
--- NOTE | 2019-01-19 06:31 | PDOC.FM ---
- Subjective Subjective: Extubated yesterday. Has been agitated and withdrawing from alcohol. Pt fighting soft restraints and spitting. She reports feeling a little short of breath and anxious. - Objective MAR Reviewed: Yes Vital Signs & Weight: Vital Signs (12 hours) Temp Pulse BP Pulse Ox 01/19/19 05:56 182/113 H 01/19/19 04:00 99.6 F 01/19/19 00:00 98.5 F 01/18/19 20:19 77 117/85 01/18/19 20:18 117/85 01/18/19 20:00 98.4 F 93 L Weight Admit Weight 97.522 kg Weight 97.7 kg Most Recent Monitor Data Heart Rate from ECG 78 NIBP 166/103 NIBP BP-Mean 124 Respiration from ECG 17 SpO2 95 I&O: 01/17/19 01/18/19 01/19/19 06:59 06:59 06:59 Intake Total 3476.1 2313.6 Output Total 510 990 765 Balance -510 2486.1 1548.6 Result Diagrams: 01/18/19 07:55 01/18/19 07:55 Phys Exam - Physical Examination Constitutional: NAD In soft restraints, blood around catheter HEENT: moist MMs Neck: supple Respiratory: no wheezing, clear to auscultation bilateral Cardiovascular: RRR, no significant murmur Gastrointestinal: soft, non-tender, positive bowel sounds Neurological: non-focal Psychiatric: normal affect Deviation from normal: However per report pt has not been acting like this majority of the night Skin: no rash Dx/Plan - Plan Plan: Patient is a 38F with PMHx of 2 cardiac stents s/p [place] in September 2018, HTN, HLD admitted for ROSC s/p vfib and cardiac arrest Cardiac arrest s/p ROSC - Intubated 01/16, extubated 01/18 - Blood cx with likely contaminant, urine cultures NGTD - mIVF @135 - Continue IV Levaquin, Vanc for suspected RLL pna - Cardiology consult, appreciate recs - Plan for cardiac Cath once stable. 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 Harris. I agree with the History, Examination, Assessment and Plan documented above with any addition or exceptions noted below. The patient was very confused overnight wanting to leave the hospital. She has been given a dose of haldol and was playing on her cellphone when I saw her. Will continue to monitor closely. ASE protocol on board.
[2019-01-19] MEDS ORDERED: Haloperidol Lactate 5 MG/ML VIAL ONE (06:51)
[2019-01-19] MEDS ORDERED: Lorazepam 2 MG/ML VIAL SLOW IVP PRN (07:24)
[2019-01-19] MEDS: Lorazepam 2 MG/ML VIAL SLOW IVP PRN ×10 (07:41→23:38)
--- NOTE | 2019-01-19 08:37 | PDOC.CPN ---
- Subjective Date: 01/19/19 Time: 12:14 Interval history: Still confused. BP elevated. DT's - Objective Allergies/Adverse Reactions: Allergies Allergy/AdvReac Type Severity Reaction Status Date / Time No Known Allergies Allergy Verified 01/17/19 02:23 Visit Medications: Current Medications Aspirin (Ecotrin) 81 mg PO DAILY [facility] Last Admin: 01/18/19 08:38 Dose: 81 mg Atorvastatin Calcium (Lipitor) 40 mg PO HS [facility] Last Admin: 01/18/19 20:18 Dose: 40 mg Carvedilol (Coreg) 6.25 mg PO BID [facility] Last Admin: 01/18/19 20:18 Dose: 6.25 mg Clopidogrel Bisulfate (Plavix) 75 mg PO DAILY [facility] Last Admin: 01/18/19 08:39 Dose: 75 mg Enoxaparin Sodium (Lovenox) 40 mg SC 0900 [facility] Last Admin: 01/18/19 08:58 Dose: 40 mg Folic Acid (Folvite) 1 mg PO DAILY [facility] Last Admin: 01/18/19 08:38 Dose: 1 mg Haloperidol Lactate (Haldol) 5 mg IM Q4H PRN PRN Reason: Agitation Hydralazine HCl (Apresoline) 10 mg SLOW IVP Q4H PRN PRN Reason: SBP Greater Than 180 Hydralazine HCl (Apresoline) 25 mg PO TID [facility] Last Admin: 01/18/19 20:19 Dose: 25 mg Fentanyl Citrate 2,000 mcg/ (Sodium Chloride) 100 mls @ 0 mls/hr IV INF [facility]; Protocol Stop: 02/15/19 20:55 Last Admin: 01/17/19 11:51 Dose: 100 mls Levofloxacin 750 mg/ Device 150 mls @ 100 mls/hr IVPB Q24HR [facility] Last Admin: 01/19/19 00:01 Dose: 150 mls Fentanyl Citrate (Fentanyl Bolus) 250 mls @ 0 mls/hr IVPB PRN PRN PRN Reason: Breakthrough pain/agitation Stop: 02/16/19 00:58 Potassium Chloride 40 meq/ (Sodium Chloride) 270 mls @ 135 mls/hr IVPB ASDIR PRN PRN Reason: FOR SERUM K+ 2.5 - 3.5 Potassium Chloride 40 meq/ (Device) 100 mls @ 50 mls/hr IVPB ASDIR PRN PRN Reason: FOR SERUM K+ 2.5 - 3.5 Magnesium Sulfate 1 gm/ Sodium (Chloride) 102 mls @ 102 mls/hr IV PRN PRN PRN Reason: MAG LEVEL 1.4 - 2.0 Magnesium Sulfate 2 gm/ Device 50 mls @ 50 mls/hr IVPB ASDIR PRN PRN Reason: MAGNESIUM < 1.4 Potassium Phosphate 9 mmol/ (Sodium Chloride) 103 mls @ 25.75 mls/hr IVPB ASDIR PRN PRN Reason: Phosphate 1.0-1.8 Potassium Phosphate 12 mmol/ (Sodium Chloride) 254 mls @ 63.5 mls/hr IV ASDIR PRN PRN Reason: Serum phosphate 0.5-0.9 Potassium Phosphate 15 mmol/ (Sodium Chloride) 255 mls @ 63.75 mls/hr IV ASDIR PRN PRN Reason: Serum Phos < 0.5 Dexmedetomidine HCl 200 mcg/ (Sodium Chloride) 50 mls @ 0 mls/hr IVPB INF [facility]; Protocol Last Admin: 01/19/19 07:41 Dose: 50 mls Iron/Minerals/Multivitamins (Theragran M) 1 tab PO DAILY [facility] Last Admin: 01/18/19 08:38 Dose: 1 tab Labetalol HCl (Normodyne) 10 mg SLOW IVP Q4H PRN PRN Reason: SBP Greater Than 180 Lisinopril (Zestril) 5 mg PO DAILY [facility] Last Admin: 01/18/19 08:38 Dose: 5 mg Lorazepam (Ativan) 2 mg SLOW IVP Q15M PRN PRN Reason: Seizures Last Admin: 01/19/19 08:13 Dose: 2 mg Lorazepam (Ativan) 2 mg SLOW IVP Q1H PRN PRN Reason: Alcohol Withdrawal Stop: 02/16/19 00:58 Magnesium Oxide (Magnesium Oxide) 400 mg PO DAILY [facility] Last Admin: 01/18/19 08:41 Dose: 400 mg Magnesium Oxide (Magnesium Oxide) 400 mg PO BIDPRN PRN PRN Reason: FOR SERUM MAG 1.4 - 2.0 Magnesium Oxide (Magnesium Oxide) 800 mg PO PRN PRN PRN Reason: FOR SERUM MAG < 1.4 Miscellaneous Medication (Phos-Nak) 1 pkt PO TIDPRN PRN PRN Reason: FOR PHOS LEVEL 1.0 - 1.8 Miscellaneous Medication (Phos-Nak) 2 pkt PO TIDPRN PRN PRN Reason: FOR PHOS LEVEL 0.5 - 1.0 Morphine Sulfate (Morphine) 2 mg SLOW IVP Q1H PRN PRN Reason: BREAKTHROUGH PAIN/Agitation Stop: 02/16/19 00:58 Discontinue Previous Narcotic Pain Medications And Benzodiazepines 1 each FS .ONE [facility] Stop: 02/16/19 00:58 Ccu Electrolyte (Replacement Protocol) 0 each FS PRN PRN PRN Reason: FOR ELECTROLYTE REPLACEMENT Potassium Chloride (K-Dur) 40 meq PO ASDIR PRN PRN Reason: FOR SERUM K+ 2.5 - 3.5 Potassium Chloride (Klor-Con) 40 meq PER TUBE ASDIR PRN PRN Reason: FOR SERUM K+ 2.5-3.5 Propofol (Diprivan) 1,000 mg IV INF PRN; Protocol PRN Reason: TO ACHIEVE GOAL RASS Stop: 02/16/19 00:58 Last Admin: 01/18/19 06:53 Dose: 1,000 mg Propofol (Diprivan Bolus) 20 mg IV Q5MIN PRN PRN Reason: BREAKTHROUGH AGITATION Stop: 02/16/19 00:58 Sodium Chloride (Flush - Normal Saline) 10 ml IVF Q12HR [facility] Last Admin: 01/18/19 20:19 Dose: 10 ml Sodium Chloride (Flush - Normal Saline) 10 ml IVF PRN PRN PRN Reason: Saline Flush Thiamine HCl (Thiamine) 100 mg PO DAILY [facility] Last Admin: 01/18/19 08:38 Dose: 100 mg Vital Signs & Weight: Vital Signs Temp BP Pulse Ox 01/19/19 07:31 97 01/19/19 07:00 97.5 F L 01/19/19 05:56 182/113 H 01/19/19 04:00 99.6 F 01/19/19 00:00 98.5 F Admit Weight 215 lb Weight 215 lb 6.266 oz - Physical Exam HEENT: normocephaly Neck: no JVD/HJR, no masses, no bruit Cardiac: no murmur, regular rate, regular rhythm Lungs: normal exam Abdomen: soft Extremities: no edema - Labs Result Diagrams: 01/18/19 07:55 01/18/19 07:55 Troponin/CKMB CK-MB (CK-2) 1.7 ng/mL (0-6.6) 01/16/19 21:06 Troponin I 0.106 ng/mL (< 0.028) H 01/17/19 06:00 - Assessment/Plan Assessment/Plan: Out of hopsital arrest CAD S/p stent Hypoxic encephalopathy 01/20 REC Pt contiues with confusion Increased BP Add IV nitro for better BP management and supplement with PO Also concern for DT; being treated No cath for now until MS improves 01/19 REC Pt doing very very given recent events Treat emdically for now Plan on angio next week Would like her mentation to improve prior to angio
[2019-01-19] MEDS: Aspirin 81 mg Enteric Coated Tablet PO SCH (08:49)
[2019-01-19] MEDS: Enoxaparin Sodium 40 MG/0.4 ML SYRINGE SC SCH (08:49)
[2019-01-19] MEDS: Clopidogrel Bisulfate 75 MG TAB PO SCH (08:49)
[2019-01-19] MEDS: Multivitamin W/ Minerals 1 TAB PO SCH (08:49)
[2019-01-19] MEDS: Carvedilol 6.25 MG TAB PO SCH ×2 (08:50→20:37)
[2019-01-19] MEDS: hydrALAZINE 25 MG TAB PO SCH ×3 (08:50→20:38)
[2019-01-19] MEDS: Magnesium Oxide 400 MG TAB PO SCH (08:50)
[2019-01-19] MEDS: Thiamine 100 MG TAB PO SCH (08:50)
[2019-01-19] MEDS: Folic Acid 1 MG TAB PO SCH (08:51)
[2019-01-19] MEDS: Lisinopril 5 MG TAB PO SCH (08:51)
[2019-01-19] MEDS ORDERED: hydrALAZINE 20 MG/ML VIAL SLOW IVP SCH (09:45)
[2019-01-19] MEDS: Haloperidol Lactate 5 MG/ML VIAL IM PRN ×3 (12:03→19:10)
[2019-01-19] MEDS: Nitroglycerin 50 MG/250 ML BOT 250 ML IVPB SCH ×2 (12:03→21:43)
--- NOTE | 2019-01-19 18:52 | PRG ---
DATE OF SERVICE: 01/19/2019 SUBJECTIVE: Bing Mosqueda has had no distress overnight, but has been verbally abusive toward staff. I believe some of this is secondary to her [id number] arrest. She has been hypertensive with diastolics over 100 today. We will add Cardene to help hopefully control her blood pressure. OBJECTIVE: VITAL SIGNS: Heart rate in the 70s and respiratory rates in the 20s. LUNGS: Clear. HEART: Regular rhythm. ABDOMEN: Soft. EXTREMITIES: Without clubbing, cyanosis, or edema. NEUROLOGIC: Nonfocal. IMPRESSION: 1. Encephalopathy after an eth-rs-vqerxfre arrest. 2. Drug use. 3. Coronary artery disease with cardiomyopathy. PLAN: Add Haldol. Continue in the Critical Care Unit. CRITICAL CARE TIME: 30 minutes. Job ID: [id number]
[2019-01-19] MEDS: niCARdipine 25 MG in Sodium Chloride 0.9% 250 ML 240 ML IVPB SCH (19:33)
[2019-01-19] MEDS: Atorvastatin Calcium 40 MG TAB PO SCH (20:37)
[2019-01-20] MEDS: niCARdipine 25 MG in Sodium Chloride 0.9% 250 ML 240 ML IVPB SCH (00:46)
[2019-01-20] MEDS: Haloperidol Lactate 5 MG/ML VIAL IM PRN ×2 (02:10→05:36)
[2019-01-20] MEDS: Lorazepam 2 MG/ML VIAL SLOW IVP PRN ×4 (02:10→14:50)
[2019-01-20 04:52] LABS: Eosinophils 4 % (0-10); Hemoglobin 11.9 g/dL (12.0-16.0); Lymphocytes 23 % (21-51); MDiff Complete? YES; Mean Corpuscular Hemoglobin 30.7 pg (27.0-31.0); Mean Corpuscular Volume 90.5 fL (78.0-98.0); Mean Platelet Volume 7.6 fL (7.4-10.4); Monocytes 9 % (0-10); Neutrophil 64 % (42-75); Platelet Count 150 thou/uL (130-400); Platelet Morphology Comment Appears Adequate; RBC Distribution Width 12.2 % (11.5-14.5); Red Blood Cell (RBC) Count 3.86 mill/uL (4.20-5.40); White Blood Cell (WBC) Count 4.3 thou/uL (4.8-10.8)
[2019-01-20 04:57] LABS: Anion Gap 15 mmol/L (10-20); BUN (Urea Nitrogen) Less than 4 mg/dL (7.0-18.7); Calc. Creatinine Clearance 190 mL/min (70-130); Calcium 8.8 mg/dL (7.8-10.44); Carbon Dioxide 25 mmol/L (22-29); Chloride 101 mmol/L (98-107); Estimated GFR-MDRD Greater than 90; Glucose 111 mg/dL (70-105); Potassium 3.5 mmol/L (3.5-5.1); Sodium 137 mmol/L (136-145)
--- NOTE | 2019-01-20 06:41 | PDOC.FM ---
- Subjective Subjective: Pt continues to be agitated requiring physical and chemical intervention overnight. She reports pain in her chest. She denies SOB, abdominal pain. Nursing reports that she was weaned off cardine drip this morning and BP has been stable. - Objective MAR Reviewed: Yes Vital Signs & Weight: Vital Signs (12 hours) Temp Pulse BP Pulse Ox 01/20/19 04:00 98.7 F 137/100 H 01/20/19 00:00 98.6 F 126/91 H 01/19/19 20:38 77 123/75 01/19/19 20:37 123/75 01/19/19 20:00 98.6 F 125/77 96 Weight Admit Weight 97.522 kg Weight 98 kg Most Recent Monitor Data Heart Rate from ECG 65 NIBP 126/88 NIBP BP-Mean 100 Respiration from ECG 13 SpO2 94 I&O: 01/18/19 01/19/19 01/20/19 06:59 06:59 06:59 Intake Total 3476.1 2313.6 2231 Output Total 330 606 2134 Balance 2486.1 1548.6 -7749 Result Diagrams: 01/20/19 04:10 01/20/19 04:10 Phys Exam - Physical Examination Mild emotional distress, crying HEENT: PERRLA, moist MMs Neck: no JVD, supple coarse lung sounds, mild crackles in right lower lung ruby Cardiovascular: RRR, no significant murmur Gastrointestinal: soft, non-tender, no distention, positive bowel sounds Musculoskeletal: pulses present trace edema, restraints on all 4 extremities Neurological: moves all 4 limbs Deviation from normal: Oriented to self Dx/Plan (1) Cardiac arrest Code(s): I46.9 - CARDIAC ARREST, CAUSE UNSPECIFIED Status: Acute (2) HTN (hypertension) Code(s): I10 - ESSENTIAL (PRIMARY) HYPERTENSION Status: Acute (3) Marijuana abuse Code(s): F12.10 - CANNABIS ABUSE, UNCOMPLICATED Status: Acute (4) Methamphetamine abuse Code(s): F15.10 - OTHER STIMULANT ABUSE, UNCOMPLICATED Status: Acute - Plan Plan: This is a 38 yo female with a pmh of CAD s/p bare metal stents in September 2018, HTN , HLD Cardiac arrest s/p Rosc, meth vs pna as cause -Extubated on 01/18 -Continue IV levaquin and vancomycin for RLL PNA -Cardiology consulted -Continue aspirin, plavix, atorvastatin -Plan for cath when mentally stable 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 Diet: HH Prophylaxis: lovenox Addendum - Attending - Attending Attestation Date/Time: 01/20/19 3914 I personally evaluated the patient and discussed the management with Dr. Johnson I agree with the History, Examination, Assessment and Plan documented above with any addition or exceptions noted below - Patient sitting up in bed talking with boyfriend. Denies any chest pain. Appears less agitated. Afebrile VSS. A/P : 1) s/p Cardiac arrest with ROSC - no further v-fib; awaiting cath. 2) h/o polysubstance abuse - off precedex; mentation better; continue to monitor. 3) H/ o CAD- continue beta raudel, plavix, statin
[2019-01-20] MEDS: Carvedilol 6.25 MG TAB PO SCH ×2 (07:19→21:29)
[2019-01-20] MEDS: Lisinopril 5 MG TAB PO SCH (07:19)
--- NOTE | 2019-01-20 07:52 | RAD ---
Chest one view HISTORY: Dyspnea. Gestation. COMPARISON: 01/18/2019. FINDINGS: Cardiac silhouette is magnified by projection. Pulmonary vasculature is unremarkable. Media stinum is midline. No lobar consolidation or evidence of pneumothorax. ekg monitor tech leads overlie the chest. Degenerative changes of the acromioclavicular joints. IMPRESSION: No active cardiopulmonary abnormalities are demonstrated.
[2019-01-20] MEDS: hydrALAZINE 25 MG TAB PO SCH ×3 (08:13→21:30)
[2019-01-20] MEDS: Aspirin 81 mg Enteric Coated Tablet PO SCH (08:13)
[2019-01-20] MEDS: Enoxaparin Sodium 40 MG/0.4 ML SYRINGE SC SCH (08:14)
[2019-01-20] MEDS: Multivitamin W/ Minerals 1 TAB PO SCH (08:14)
[2019-01-20] MEDS: Folic Acid 1 MG TAB PO SCH (08:14)
[2019-01-20] MEDS: Clopidogrel Bisulfate 75 MG TAB PO SCH (08:14)
[2019-01-20] MEDS: Magnesium Oxide 400 MG TAB PO SCH (08:14)
[2019-01-20] MEDS: Thiamine 100 MG TAB PO SCH (08:14)
[2019-01-20] MEDS: Potassium Chloride 20 MEQ TAB PO PRN (09:30)
--- NOTE | 2019-01-20 09:35 | PRG ---
DATE OF SERVICE: 01/20/2019 SUBJECTIVE: She seems calm. She remains on the Precedex. OBJECTIVE: VITAL SIGNS: Temperature 97.1, pulse 63, and blood pressure 138/104. A 24-hour intake 2231 and output 4860. HEENT: Unremarkable. NECK: No adenopathy or JVD. CHEST: Clear. CARDIAC: S1 and S2. Regular. ABDOMEN: Soft. EXTREMITIES: No edema. LABORATORY DATA: White blood cell count 4.3, hematocrit 34.1, and platelet count 150. Sodium 137, potassium 3.5, BUN 4, creatinine 0.6, and glucose 111. ASSESSMENT: 1. Alcohol withdrawal. 2. Status post respiratory failure requiring mechanical ventilation. 3. Drug use. 4. Cardiomyopathy/coronary artery disease. PLAN: Stop Precedex and observe. If she can do okay without the Precedex, then she can be transferred to the floor. Continue p.r.n. benzodiazepines. Job ID: [id number]
--- NOTE | 2019-01-20 12:30 | PDOC.CPN ---
- Subjective Date: 01/20/19 Time: 12:37 Interval history: The pt seen and examined. No overnight events. No cardiac complaints. - Objective Allergies/Adverse Reactions: Allergies Allergy/AdvReac Type Severity Reaction Status Date / Time No Known Allergies Allergy Verified 01/17/19 02:23 Visit Medications: Current Medications Aspirin (Ecotrin) 81 mg PO DAILY [facility] Last Admin: 01/20/19 08:13 Dose: 81 mg Atorvastatin Calcium (Lipitor) 40 mg PO HS [facility] Last Admin: 01/19/19 20:37 Dose: 40 mg Carvedilol (Coreg) 6.25 mg PO BID [facility] Last Admin: 01/20/19 07:19 Dose: 6.25 mg Clopidogrel Bisulfate (Plavix) 75 mg PO DAILY [facility] Last Admin: 01/20/19 08:14 Dose: 75 mg Enoxaparin Sodium (Lovenox) 40 mg SC 0900 [facility] Last Admin: 01/20/19 08:14 Dose: 40 mg Folic Acid (Folvite) 1 mg PO DAILY [facility] Last Admin: 01/20/19 08:14 Dose: 1 mg Hydralazine HCl (Apresoline) 10 mg SLOW IVP Q4H PRN PRN Reason: SBP Greater Than 180 Hydralazine HCl (Apresoline) 25 mg PO TID [facility] Last Admin: 01/20/19 08:13 Dose: 25 mg Levofloxacin 750 mg/ Device 150 mls @ 100 mls/hr IVPB Q24HR [facility] Last Admin: 01/19/19 22:09 Dose: 150 mls Potassium Chloride 40 meq/ (Sodium Chloride) 270 mls @ 135 mls/hr IVPB ASDIR PRN PRN Reason: FOR SERUM K+ 2.5 - 3.5 Potassium Chloride 40 meq/ (Device) 100 mls @ 50 mls/hr IVPB ASDIR PRN PRN Reason: FOR SERUM K+ 2.5 - 3.5 Magnesium Sulfate 1 gm/ Sodium (Chloride) 102 mls @ 102 mls/hr IV PRN PRN PRN Reason: MAG LEVEL 1.4 - 2.0 Magnesium Sulfate 2 gm/ Device 50 mls @ 50 mls/hr IVPB ASDIR PRN PRN Reason: MAGNESIUM < 1.4 Potassium Phosphate 9 mmol/ (Sodium Chloride) 103 mls @ 25.75 mls/hr IVPB ASDIR PRN PRN Reason: Phosphate 1.0-1.8 Potassium Phosphate 12 mmol/ (Sodium Chloride) 254 mls @ 63.5 mls/hr IV ASDIR PRN PRN Reason: Serum phosphate 0.5-0.9 Potassium Phosphate 15 mmol/ (Sodium Chloride) 255 mls @ 63.75 mls/hr IV ASDIR PRN PRN Reason: Serum Phos < 0.5 Dexmedetomidine HCl 400 mcg/ (Sodium Chloride) 100 mls @ 0 mls/hr IVPB INF [facility] ; Protocol Last Admin: 01/20/19 06:09 Dose: 100 mls Nitroglycerin/Dextrose (Nitroglycerin 50 Mg/250 Ml Bot) 250 mls @ 0 mls/hr IVPB INF [facility]; Protocol Last Admin: 01/19/19 21:43 Dose: 250 mls Nicardipine HCl 25 mg/ Sodium (Chloride) 250 mls @ 0 mls/hr IVPB INF [facility]; Protocol Last Admin: 01/20/19 00:46 Dose: 250 mls Iron/Minerals/Multivitamins (Theragran M) 1 tab PO DAILY [facility] Last Admin: 01/20/19 08:14 Dose: 1 tab Labetalol HCl (Normodyne) 10 mg SLOW IVP Q4H PRN PRN Reason: SBP Greater Than 180 Lisinopril (Zestril) 5 mg PO DAILY [facility] Last Admin: 01/20/19 07:19 Dose: 5 mg Lorazepam (Ativan) 2 mg SLOW IVP Q15M PRN PRN Reason: Seizures Last Admin: 01/20/19 09:29 Dose: 2 mg Magnesium Oxide (Magnesium Oxide) 400 mg PO DAILY [facility] Last Admin: 01/20/19 08:14 Dose: 400 mg Magnesium Oxide (Magnesium Oxide) 400 mg PO BIDPRN PRN PRN Reason: FOR SERUM MAG 1.4 - 2.0 Magnesium Oxide (Magnesium Oxide) 800 mg PO PRN PRN PRN Reason: FOR SERUM MAG < 1.4 Miscellaneous Medication (Phos-Nak) 1 pkt PO TIDPRN PRN PRN Reason: FOR PHOS LEVEL 1.0 - 1.8 Miscellaneous Medication (Phos-Nak) 2 pkt PO TIDPRN PRN PRN Reason: FOR PHOS LEVEL 0.5 - 1.0 Ccu Electrolyte (Replacement Protocol) 0 each FS PRN PRN PRN Reason: FOR ELECTROLYTE REPLACEMENT Potassium Chloride (K-Dur) 40 meq PO ASDIR PRN PRN Reason: FOR SERUM K+ 2.5 - 3.5 Last Admin: 01/20/19 09:30 Dose: 40 meq Potassium Chloride (Klor-Con) 40 meq PER TUBE ASDIR PRN PRN Reason: FOR SERUM K+ 2.5-3.5 Sodium Chloride (Flush - Normal Saline) 10 ml IVF Q12HR [facility] Last Admin: 01/20/19 08:15 Dose: 10 ml Sodium Chloride (Flush - Normal Saline) 10 ml IVF PRN PRN PRN Reason: Saline Flush Thiamine HCl (Thiamine) 100 mg PO DAILY [facility] Last Admin: 01/20/19 08:14 Dose: 100 mg Vital Signs & Weight: Vital Signs Temp Pulse BP Pulse Ox 01/20/19 11:00 98.0 F 01/20/19 08:13 68 161/119 H 01/20/19 07:59 161/119 H 01/20/19 07:36 99 01/20/19 07:19 60 138/104 H 01/20/19 07:00 97.1 F L 01/20/19 04:00 98.7 F 137/100 H Admit Weight 215 lb Weight 216 lb 0.848 oz - Physical Exam General: other (slow to response) Neck: supple neck Cardiac: regular rate and rhythm, S1/S2 Lungs: decreased breath sounds Abdomen: unremarkable Skin: clear Musculoskeletal: decreased range of motion - Labs Result Diagrams: 01/20/19 04:10 01/20/19 04:10 Troponin/CKMB CK-MB (CK-2) 1.7 ng/mL (0-6.6) 01/16/19 21:06 Troponin I 0.106 ng/mL (< 0.028) H 01/17/19 06:00 - Telemetry Sinus rhythms and dysrhythmias: sinus rhythm - Assessment/Plan Assessment/Plan: 1. Out of hopsital arrest - stable with RA; Plan for LHC when she is more stable 2. CAD with hx of LHC with BMS stent x2 in Lt Cx and stenosis in RCA in 09/2018 - On BBlocker, Plavix, ASA, and Statin. 3. Hypoxic encephalopathy - slightly improving today 4. HTN urgency - stable with current meds 5. Tobacco, ETOH, and Ilicit drug abuse - MAR reviewed * Echo in 01/2019 with EF 30-35%, mild LVH, mild TR, and trace MR. Pt. seen and eval. by me. i agree with the A/P by the TYPEWRITER ALIGNER. She is still confused but not agitated like over the weekemd. If she remains stable, consider cath tomorrow. chest clear. RRR.
--- NOTE | 2019-01-20 12:59 | PRG ---
DATE OF SERVICE: 01/20/2019 SUBJECTIVE: Ms. Mosqueda seems to be doing fair. She is extubated, although still confused in regard to time, but she knows person and place. She had some anxiety issues, possible DTs over the weekend post extubation. OBJECTIVE DATA: VITAL SIGNS: Blood pressure is 143/93, heart rate 70, respirations 11, and temperature 98 degrees Fahrenheit. GENERAL: Alert and oriented woman, x2. NECK: Supple. Jugular veins not distended. CHEST: Coarse. No crackles. HEART: Sounds are regular to rate and rhythm. No murmur or gallop. ABDOMEN: Benign. Bowel sounds positive. EXTREMITIES: Lower extremity without edema, clubbing, or cyanosis. DATABASE: Telemetry strips reveal no further ventricular arrhythmias. LABORATORY DATA: White cell count is 4.3, hemoglobin 11.9, platelet count is 150. Sodium 137, potassium 3.5, BUN is 4, and creatinine 0.63. ASSESSMENT AND PLAN: Ms. Mosqueda is a pleasant 38-year-old woman with history of coronary artery disease with repeated stenting required, who presented with episode of ventricular fibrillation. LVEF is going to be reduced at 35%; although, her troponin levels are borderline. Left heart catheterization is planned after clinical stabilization. Depending on the findings, she likely either would proceed with LifeVest therapy or an ICD implant if indeed her coronary artery status is stable, not requiring revascularization. Ischemic encephalopathy seems to be improving trend. We will follow with you. Job ID: [id number]
--- NOTE | 2019-01-20 16:49 | PDOC.PALCO ---
Palliative Care Consult - Consult Details Requesting Physician: Dr Garrido Reason for Consult: goals of care, advance directives assistance, family support Family Members Present: Significnat other [facility] - Pertinent HPI 38 year old female whose significant other states she was sick a week with a cough, fever and chills then when he returned home the patient took some cough syrup and slumped to the floor, he called 911 and secondary to patient being pulseless he initiated CPR prior to EMS arrival. Upon EMS arrival patient was in vfib, shocked, and return of spontaneous circulation occurred, intubated and transferred to [facility]. Urine screen identified meth, boyfriend gives report of Marijuana use and alcohol but was unaware of meth use. Patient was transferred to ICU for continued care. - Pertinent PMH cardiac stents x2, Hypertension, - Social History Smoking Status: Current every day smoker Smoking: cigarettes Alcohol Use: heavy, daily Drug Use History: marijuana, other (Methamphetamines on drug screed) Living Situation: with partner - Medications MAR Reviewed: Yes - Allergies Allergies/Adverse Reactions: Allergies Allergy/AdvReac Type Severity Reaction Status Date / Time No Known Allergies Allergy Verified 01/17/19 02:23 - Subjective Patient intubated on mechanical support for ventilation. Opens eyes. Boyfriend at bedside. ROS: 10 point review negative as patient intubated and not able at this time to give response. - Objective Vital Signs: Vital Signs - Most Recent Temp Pulse Resp BP Pulse Ox 100 F H 79 12 135/94 H 99 01/20/19 15:00 01/20/19 14:57 01/18/19 08:00 01/20/19 14:57 01/20/19 07:36 Palliative Performance Scale: 30 - Physical Exam Constitutional: confusion, mild distress HEENT: moist MMs, sclera anicteric, EOMI Deviation from normal: mechanical ventilation, adventicious breath sounds Cardiovascular: irregular Gastrointestinal: soft, non-tender, positive bowel sounds Musculoskeletal: no edema, pulses present Neurological: moves all 4 limbs Lymphatic: no nodes Deviation from normal: confused, lethargic Skin: cap refill <2 seconds - Problem List (1) Palliative care encounter Code(s): Z51.5 - ENCOUNTER FOR PALLIATIVE CARE Current Visit: Yes Status: Acute (2) Cardiac arrest Code(s): I46.9 - CARDIAC ARREST, CAUSE UNSPECIFIED Current Visit: Yes Status : Acute (3) HTN (hypertension) Code(s): I10 - ESSENTIAL (PRIMARY) HYPERTENSION Current Visit: Yes Status: Acute (4) History of heart artery stent Code(s): Z95.5 - PRESENCE OF CORONARY ANGIOPLASTY IMPLANT AND GRAFT Current Visit: Yes Status: Acute (5) Marijuana abuse Code(s): F12.10 - CANNABIS ABUSE, UNCOMPLICATED Current Visit: Yes Status: Acute (6) Methamphetamine abuse Code(s): F15.10 - OTHER STIMULANT ABUSE, UNCOMPLICATED Current Visit: Yes Status: Acute - Plan/Recommendations Plan: Initiated contact with patient and significant other. Her partner did relay that her father is alive and he provided Miguel Laureano Palliative Care RN with his information. Palliative Care will reach out as he is her next of kin. Will follow for supportive care and identify goals of care for patient. [40] minutes spent on this encounter with >50% of the time in counseling and coordination of care. Thank you for this very appropriate consult.
--- NOTE | 2019-01-20 17:07 | PDOC.PALFU ---
Palliative Care Follow-up Note Follow up visit from initial visit 01/17/19. Patient awake, alert continues to be mildly confused. States last time she was "clean" was when she was in [facility] for 6 months (A correctional facility). States she has three children that she does not have custody of, they live with their father. Further states she did go to [facility] in the past and is interested in going again.
[2019-01-20] MEDS: Atorvastatin Calcium 40 MG TAB PO SCH (21:29)
[2019-01-20] MEDS: Benzonatate 100 MG CAP PO PRN (21:31)
[2019-01-21] MEDS: Benzonatate 100 MG CAP PO PRN ×2 (01:43→12:50)
[2019-01-21 05:33] LABS: Band 1 % (5-11); Hemoglobin 12.1 g/dL (12.0-16.0); Lymphocytes 32 % (21-51); MDiff Complete? YES; Mean Corpuscular HGB CONC 33.6 g/dL (32.0-36.0); Mean Corpuscular Hemoglobin 30.6 pg (27.0-31.0); Mean Corpuscular Volume 91.1 fL (78.0-98.0); Mean Platelet Volume 7.8 fL (7.4-10.4); Monocytes 3 % (0-10); Neutrophil 64 % (42-75); Platelet Count 165 thou/uL (130-400); Platelet Morphology Comment Appears Adequate; RBC Distribution Width 12.2 % (11.5-14.5); RBC Morphology Normal; Red Blood Cell (RBC) Count 3.94 mill/uL (4.20-5.40); White Blood Cell (WBC) Count 5.6 thou/uL (4.8-10.8)
[2019-01-21 05:46] LABS: Anion Gap 13 mmol/L (10-20); BUN (Urea Nitrogen) Less than 4 mg/dL (7.0-18.7); Calc. Creatinine Clearance 180 mL/min (70-130); Calcium 8.4 mg/dL (7.8-10.44); Carbon Dioxide 23 mmol/L (22-29); Chloride 99 mmol/L (98-107); Estimated GFR-MDRD Greater than 90; Glucose 87 mg/dL (70-105); Potassium 3.5 mmol/L (3.5-5.1); Sodium 131 mmol/L (136-145)
[2019-01-21] MEDS: Potassium Chloride 20 MEQ TAB PO PRN (06:23)
--- NOTE | 2019-01-21 06:30 | PDOC.FM ---
- Subjective Subjective: Pt state she did well overnight. She has some chest pain with coughing and deep breaths. Nursing reports no ativan used overnight. She did try getting up a few times in the night with her tomas in. She required redirection. - Objective MAR Reviewed: Yes Vital Signs & Weight: Vital Signs (12 hours) Temp Pulse BP Pulse Ox 01/21/19 04:00 98.8 F 155/102 H 01/21/19 00:00 99.2 F 144/95 H 01/20/19 21:30 84 152/106 H 01/20/19 21:29 151/106 H 01/20/19 20:00 98.9 F 132/87 97 Weight Admit Weight 97.522 kg Weight 98.4 kg Most Recent Monitor Data Heart Rate from ECG 86 NIBP 158/112 NIBP BP-Mean 127 Respiration from ECG 15 SpO2 98 I&O: 01/19/19 01/20/19 01/21/19 06:59 06:59 06:59 Intake Total 2313.6 2231 1933.5 Output Total 765 4860 1435 Balance 1548.6 -2629 498.5 Result Diagrams: 01/21/19 04:45 01/21/19 04:45 Phys Exam - Physical Examination Constitutional: NAD HEENT: moist MMs Neck: no JVD Respiratory: no wheezing Left sided crackles, no respiratory distress Cardiovascular: RRR, no significant murmur Gastrointestinal: soft, non-tender, no distention Musculoskeletal: pulses present, edema present (trace) Neurological: normal sensation, moves all 4 limbs Psychiatric: A&O x 3 Deviation from normal: Slow to answer questions, asking when she can leave Skin: cap refill <2 seconds Dx/Plan (1) Cardiac arrest Code(s): I46.9 - CARDIAC ARREST, CAUSE UNSPECIFIED Status: Acute (2) HTN (hypertension) Code(s): I10 - ESSENTIAL (PRIMARY) HYPERTENSION Status: Acute (3) Marijuana abuse Code(s): F12.10 - CANNABIS ABUSE, UNCOMPLICATED Status: Acute (4) Methamphetamine abuse Code(s): F15.10 - OTHER STIMULANT ABUSE, UNCOMPLICATED Status: Acute - Plan Plan: This is a 38 yo female with a pmh of CAD s/p bare metal stents in September 2018, HTN , HLD Cardiac arrest s/p Rosc, meth vs pna as cause -Extubated on 01/18 -Continue IV levaquin and vancomycin for RLL PNA -Cardiology consulted -Continue aspirin, plavix, atorvastatin -Plan for cath when mentally stable -Transfer to [facility] 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 Johnson I agree with the History, Examination, Assessment and Plan documented above with any addition or exceptions noted below - 1) s/p Cardiac arrest with ROSC - no further v-fib; planning for cath in next 1-2 days. 2) h/o polysubstance abuse - off precedex; mentation better; continue to monitor. 3) H/o CAD- continue beta raudel, plavix, statin .
[2019-01-21] MEDS: hydrALAZINE 25 MG TAB PO SCH ×3 (09:48→20:00)
[2019-01-21] MEDS: Enoxaparin Sodium 40 MG/0.4 ML SYRINGE SC SCH (09:48)
[2019-01-21] MEDS: Aspirin 81 mg Enteric Coated Tablet PO SCH (09:49)
[2019-01-21] MEDS: Lisinopril 5 MG TAB PO SCH (09:49)
[2019-01-21] MEDS: Multivitamin W/ Minerals 1 TAB PO SCH (09:49)
[2019-01-21] MEDS: Folic Acid 1 MG TAB PO SCH (09:49)
[2019-01-21] MEDS: Carvedilol 6.25 MG TAB PO SCH ×2 (09:49→20:00)
[2019-01-21] MEDS: Magnesium Oxide 400 MG TAB PO SCH (09:49)
[2019-01-21] MEDS: Thiamine 100 MG TAB PO SCH (09:50)
[2019-01-21] MEDS: Clopidogrel Bisulfate 75 MG TAB PO SCH (09:50)
--- NOTE | 2019-01-21 10:07 | PRG ---
DATE OF SERVICE: 01/21/2019 SUBJECTIVE: The patient is awake and alert. She is concerned that she has pneumonia. OBJECTIVE: VITAL SIGNS: Her temperature is 98.8, pulse 92, blood pressure 175/129. 24-hour intake 1933, output 1435. HEENT: Unremarkable. NECK: No adenopathy or JVD. CHEST: Clear to auscultation anteriorly, bilaterally. CARDIAC: S1, S2. Regular. ABDOMEN: Soft and nontender. EXTREMITIES: No edema. LABORATORY DATA: White blood cell count 5.6, hematocrit 35.9, and platelet count 165. Sodium 131, potassium 3.5, chloride 99, CO2 of 23, BUN 4, creatinine 0.6, glucose 87. ASSESSMENT: 1. Alcohol withdrawal-improved. 2. Status post respiratory failure, requiring mechanical ventilation. 3. History of drug use. 4. Cardiomyopathy/coronary artery disease. 5. Malignant hypertension. PLAN: 1. The patient can be transferred out to the intermediate care unit since there has been nothing significant growth of cultures, I would not extend antibiotics beyond seven days. 2. Increase activity as tolerated. Job ID: [id number]
--- NOTE | 2019-01-21 10:29 | PDOC.PALPN ---
Palliative Progress Note - Subjective Awake, alert, delayed response to questions. Denies pain, mild cough. ROS: Otherwise 10 point review negative. - Objective Vital Signs: Vital Signs - Most Recent Temp Pulse Resp BP Pulse Ox 99.1 F 84 12 164/114 H 100 01/21/19 08:00 01/20/19 21:30 01/18/19 08:00 01/21/19 09:49 01/21/19 08:00 - Physical Exam Constitutional: confusion HEENT: PERRLA, moist MMs, EOMI Respiratory: no wheezing, clear to auscultation bilateral, unlabored breathing Cardiovascular: RRR, no significant murmur Gastrointestinal: soft, non-tender, positive bowel sounds Musculoskeletal: no edema, pulses present Neurological: normal sensation, moves all 4 limbs Psychiatric: A&O x 3 Deviation from normal: Flat affect Skin: normal turgor, cap refill <2 seconds - Assessment (1) Palliative care encounter Code(s): Z51.5 - ENCOUNTER FOR PALLIATIVE CARE Current Visit: Yes Status: Acute (2) Cardiac arrest Code(s): I46.9 - CARDIAC ARREST, CAUSE UNSPECIFIED Current Visit: Yes Status : Acute (3) HTN (hypertension) Code(s): I10 - ESSENTIAL (PRIMARY) HYPERTENSION Current Visit: Yes Status: Acute (4) History of heart artery stent Code(s): Z95.5 - PRESENCE OF CORONARY ANGIOPLASTY IMPLANT AND GRAFT Current Visit: Yes Status: Acute (5) Marijuana abuse Code(s): F12.10 - CANNABIS ABUSE, UNCOMPLICATED Current Visit: Yes Status: Acute (6) Methamphetamine abuse Code(s): F15.10 - OTHER STIMULANT ABUSE, UNCOMPLICATED Current Visit: Yes Status: Acute - Plan Plan: Revisited discussion with significant other at bedside in relation to recovery. Patient states that she "sneaks out" when her boyfriend goes to sleep and that is when she uses. Patient open to "try" and attempt to go to AA/NA meetings. Will provide contact information and schedule for patient in relation to recovery meeting. Boyfriend supportive. [40] minutes spent on this encounter with >50% of the time in counseling and coordination of care.
[2019-01-21] MEDS ORDERED: Acetaminophen 500 MG TAB PO SCH (13:30)
[2019-01-21] MEDS ORDERED: Communication Order-Pharmacy FS SCH (18:15)
--- NOTE | 2019-01-21 19:04 | PDOC.CPN ---
- Subjective Date: 01/21/19 Time: 18:30 Interval history: The pt seen and examined. No overnight events. NO cardiac complaints. - Objective Allergies/Adverse Reactions: Allergies Allergy/AdvReac Type Severity Reaction Status Date / Time No Known Allergies Allergy Verified 01/17/19 02:23 Visit Medications: Current Medications Acetaminophen (Tylenol) 1,000 mg PO Q6H PRN PRN Reason: Moderate to Severe Pain (6-10) Aspirin (Ecotrin) 81 mg PO DAILY [facility] Last Admin: 01/21/19 09:49 Dose: 81 mg Atorvastatin Calcium (Lipitor) 40 mg PO HS [facility] Last Admin: 01/20/19 21:29 Dose: 40 mg Benzonatate (Tessalon) 100 mg PO Q4H PRN PRN Reason: Cough Last Admin: 01/21/19 12:50 Dose: 100 mg Carvedilol (Coreg) 6.25 mg PO BID [facility] Last Admin: 01/21/19 09:49 Dose: 6.25 mg Clopidogrel Bisulfate (Plavix) 75 mg PO DAILY [facility] Last Admin: 01/21/19 09:50 Dose: 75 mg Enoxaparin Sodium (Lovenox) 40 mg SC 0900 [facility] Stop: 01/21/19 21:01 Last Admin: 01/21/19 09:48 Dose: 40 mg Folic Acid (Folvite) 1 mg PO DAILY [facility] Last Admin: 01/21/19 09:49 Dose: 1 mg Hydralazine HCl (Apresoline) 10 mg SLOW IVP Q4H PRN PRN Reason: SBP Greater Than 180 Hydralazine HCl (Apresoline) 25 mg PO TID [facility] Last Admin: 01/21/19 16:34 Dose: 25 mg Levofloxacin 750 mg/ Device 150 mls @ 100 mls/hr IVPB Q24HR [facility] Last Admin: 01/20/19 22:46 Dose: 150 mls Potassium Chloride 40 meq/ (Sodium Chloride) 270 mls @ 135 mls/hr IVPB ASDIR PRN PRN Reason: FOR SERUM K+ 2.5 - 3.5 Potassium Chloride 40 meq/ (Device) 100 mls @ 50 mls/hr IVPB ASDIR PRN PRN Reason: FOR SERUM K+ 2.5 - 3.5 Magnesium Sulfate 1 gm/ Sodium (Chloride) 102 mls @ 102 mls/hr IV PRN PRN PRN Reason: MAG LEVEL 1.4 - 2.0 Magnesium Sulfate 2 gm/ Device 50 mls @ 50 mls/hr IVPB ASDIR PRN PRN Reason: MAGNESIUM < 1.4 Potassium Phosphate 9 mmol/ (Sodium Chloride) 103 mls @ 25.75 mls/hr IVPB ASDIR PRN PRN Reason: Phosphate 1.0-1.8 Potassium Phosphate 12 mmol/ (Sodium Chloride) 254 mls @ 63.5 mls/hr IV ASDIR PRN PRN Reason: Serum phosphate 0.5-0.9 Potassium Phosphate 15 mmol/ (Sodium Chloride) 255 mls @ 63.75 mls/hr IV ASDIR PRN PRN Reason: Serum Phos < 0.5 Dexmedetomidine HCl 400 mcg/ (Sodium Chloride) 100 mls @ 0 mls/hr IVPB [facility] ; Protocol Last Admin: 01/20/19 06:09 Dose: 100 mls Nitroglycerin/Dextrose (Nitroglycerin 50 Mg/250 Ml Bot) 250 mls @ 0 mls/hr IVPB [facility]; Protocol Last Admin: 01/19/19 21:43 Dose: 250 mls Nicardipine HCl 25 mg/ Sodium (Chloride) 250 mls @ 0 mls/hr IVPB [facility]; Protocol Last Admin: 01/20/19 00:46 Dose: 250 mls Iron/Minerals/Multivitamins (Theragran M) 1 tab PO DAILY [facility] Last Admin: 01/21/19 09:49 Dose: 1 tab Labetalol HCl (Normodyne) 10 mg SLOW IVP Q4H PRN PRN Reason: SBP Greater Than 180 Lisinopril (Zestril) 5 mg PO DAILY [facility] Last Admin: 01/21/19 09:49 Dose: 5 mg Magnesium Oxide (Magnesium Oxide) 400 mg PO DAILY [facility] Last Admin: 01/21/19 09:49 Dose: 400 mg Magnesium Oxide (Magnesium Oxide) 400 mg PO BIDPRN PRN PRN Reason: FOR SERUM MAG 1.4 - 2.0 Magnesium Oxide (Magnesium Oxide) 800 mg PO PRN PRN PRN Reason: FOR SERUM MAG < 1.4 Miscellaneous Information (Communication Order-Pharmacy) 0 each FS ONE [facility] Stop: 01/22/19 08:00 Miscellaneous Medication (Phos-Nak) 1 pkt PO TIDPRN PRN PRN Reason: FOR PHOS LEVEL 1.0 - 1.8 Miscellaneous Medication (Phos-Nak) 2 pkt PO TIDPRN PRN PRN Reason: FOR PHOS LEVEL 0.5 - 1.0 Ccu Electrolyte (Replacement Protocol) 0 each FS PRN PRN PRN Reason: FOR ELECTROLYTE REPLACEMENT Potassium Chloride (K-Dur) 40 meq PO ASDIR PRN PRN Reason: FOR SERUM K+ 2.5 - 3.5 Last Admin: 01/21/19 06:23 Dose: 40 meq Potassium Chloride (Klor-Con) 40 meq PER TUBE ASDIR PRN PRN Reason: FOR SERUM K+ 2.5-3.5 Sodium Chloride (Flush - Normal Saline) 10 ml IVF Q12HR [facility] Last Admin: 01/21/19 09:50 Dose: 10 ml Sodium Chloride (Flush - Normal Saline) 10 ml IVF PRN PRN PRN Reason: Saline Flush Thiamine HCl (Thiamine) 100 mg PO DAILY [facility] Last Admin: 01/21/19 09:50 Dose: 100 mg Vital Signs & Weight: Vital Signs Temp Pulse BP Pulse Ox 01/21/19 16:34 143/85 H 01/21/19 16:00 143/85 H 01/21/19 12:00 143/85 H 01/21/19 09:49 164/114 H 01/21/19 09:48 93 152/107 H 01/21/19 08:00 99.1 F 164/114 H 100 Admit Weight 215 lb Weight 216 lb 14.958 oz - Physical Exam General: alert & oriented x3 HEENT: mucus membranes moist Cardiac: regular rate and rhythm, S1/S2 Lungs: decreased breath sounds Extremities: no cyanosis Skin: clear Musculoskeletal: decreased range of motion - Labs Result Diagrams: 01/21/19 04:45 01/21/19 04:45 Troponin/CKMB CK-MB (CK-2) 1.7 ng/mL (0-6.6) 01/16/19 21:06 Troponin I 0.106 ng/mL (< 0.028) H 01/17/19 06:00 - Telemetry Sinus rhythms and dysrhythmias: sinus rhythm - Assessment/Plan Assessment/Plan: 1. Out of hopsital arrest - stable with RA; Plan for LHC tomorrow 2. CAD with hx of LHC with BMS stent x2 in Lt Cx and stenosis in RCA in 09/2018 - On BBlocker, Plavix, ASA, and Statin. 3. Hypoxic encephalopathy - slightly improving today 4. HTN urgency - stable with current meds 5. Tobacco, ETOH, and Ilicit drug abuse - MAR reviewed * Echo in 01/2019 with EF 30-35%, mild LVH, mild TR, and trace MR. Pt. seen and eval. by me. I agree with the A/P by the [employer]. Plan for cath i AM. Chest clear. RRR. Plan for AICD tomorrow or later this week if coronary status is stable. viat
[2019-01-21] MEDS: Acetaminophen 500 MG TAB PO PRN (19:49)
[2019-01-21] MEDS: Atorvastatin Calcium 40 MG TAB PO SCH (20:01)
[2019-01-22] MEDS: Acetaminophen 500 MG TAB PO PRN (04:19)
[2019-01-22 04:38] LABS: Anion Gap 12 mmol/L (10-20); BUN (Urea Nitrogen) 4 mg/dL (7.0-18.7); Calc. Creatinine Clearance 170 mL/min (70-130); Calcium 8.6 mg/dL (7.8-10.44); Carbon Dioxide 24 mmol/L (22-29); Chloride 101 mmol/L (98-107); Estimated GFR-MDRD Greater than 90; Glucose 95 mg/dL (70-105); Sodium 133 mmol/L (136-145)
--- NOTE | 2019-01-22 05:54 | PDOC.FM ---
- Subjective Subjective: No complaints this morning. She denies chest pain except with deep breathing. - Objective MAR Reviewed: Yes Vital Signs & Weight: Vital Signs (12 hours) Temp Pulse BP Pulse Ox 01/22/19 04:08 98.4 F 01/22/19 00:00 155/115 H 01/21/19 23:33 98.7 F 01/21/19 20:00 89 152/120 H 98 01/21/19 19:09 99.1 F Weight Admit Weight 97.522 kg Weight 98.4 kg Most Recent Monitor Data Heart Rate from ECG 90 NIBP 160/119 NIBP BP-Mean 132 Respiration from ECG 15 SpO2 94 I&O: 01/20/19 01/21/19 01/22/19 06:59 06:59 06:59 Intake Total 2231 1933.5 480 Output Total 4860 1435 790 Balance -2629 498.5 -310 Result Diagrams: 01/21/19 04:45 01/22/19 04:01 Phys Exam - Physical Examination Constitutional: NAD (Today she is the most alert I have seen her) HEENT: PERRLA, moist MMs Neck: no JVD Respiratory: no wheezing, clear to auscultation bilateral Cardiovascular: RRR, no significant murmur Gastrointestinal: soft, non-tender, no distention, positive bowel sounds Musculoskeletal: no edema, pulses present Neurological: moves all 4 limbs Psychiatric: A&O x 3 Skin: cap refill <2 seconds Dx/Plan (1) Cardiac arrest Code(s): I46.9 - CARDIAC ARREST, CAUSE UNSPECIFIED Status: Acute (2) HTN (hypertension) Code(s): I10 - ESSENTIAL (PRIMARY) HYPERTENSION Status: Acute (3) Marijuana abuse Code(s): F12.10 - CANNABIS ABUSE, UNCOMPLICATED Status: Acute (4) Methamphetamine abuse Code(s): F15.10 - OTHER STIMULANT ABUSE, UNCOMPLICATED Status: Acute - Plan Plan: This is a 38 yo female with a pmh of CAD s/p bare metal stents in September 2018, HTN , HLD Cardiac arrest s/p Rosc, meth vs pna as cause -Extubated on 01/18 -Continue IV levaquin, stop after today's dose -Cardiology consulted -Continue aspirin, plavix, atorvastatin -Heart cath planned for today, possible AICD placement later this week 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 Pt seems open to AA UDS positive for meth/marijuana Addendum - Attending - Attending Attestation Date/Time: 01/22/19 7981 I personally evaluated the patient and discussed the management with Dr. Johnson I agree with the History, Examination, Assessment and Plan documented above with any addition or exceptions noted below- Patient denies any complaints. Afebrile VSS. A/P: 10 s/p cardiac arrest with v-fib - no further episodes of v- fib; AICD placed today. 2) CAD-s/p cath today with mild re-stenosis in stent and 60% RCA stenosis; plan for medical management for now.
[2019-01-22] MEDS: Multivitamin W/ Minerals 1 TAB PO SCH (06:28)
[2019-01-22] MEDS: Thiamine 100 MG TAB PO SCH (06:29)
[2019-01-22] MEDS: Magnesium Oxide 400 MG TAB PO SCH (06:29)
[2019-01-22] MEDS: Carvedilol 6.25 MG TAB PO SCH ×2 (06:29→20:56)
[2019-01-22] MEDS: Folic Acid 1 MG TAB PO SCH (06:31)
[2019-01-22] MEDS: hydrALAZINE 25 MG TAB PO SCH ×3 (06:31→20:57)
[2019-01-22] MEDS: Lisinopril 5 MG TAB PO SCH (06:31)
[2019-01-22] MEDS ORDERED: Lidocaine 1% (PF) 30 ML VIAL ONE ×2 (06:45→08:04)
[2019-01-22] MEDS ORDERED: Heparin 10,000 UNITS/1 ML VIAL ONE (07:29)
[2019-01-22] MEDS ORDERED: Verapamil 5 MG/2 ML VIAL ONE (07:29)
[2019-01-22] MEDS ORDERED: Nitroglycerin 100MG/250ML BOT 250 ML ONE (07:29)
[2019-01-22] MEDS ORDERED: Ketamine 50 MG/ML (10ML VIAL) ONE (07:44)
[2019-01-22] MEDS ORDERED: Fentanyl 100 MCG/2 ML VIAL ONE (07:44)
[2019-01-22] MEDS ORDERED: Midazolam HCl 2 mg/2 ml Vial ONE (07:44)
[2019-01-22] MEDS ORDERED: CEFAZOLIN 1 GM VIAL ONE (08:01)
[2019-01-22] MEDS ORDERED: Ondansetron HCl/PF 4 MG/2 ML Vial IVP PRN (09:08)
[2019-01-22] MEDS ORDERED: Promethazine HCl 25 MG/ML VIAL SLOW IVP PRN (09:08)
[2019-01-22] MEDS ORDERED: Promethazine HCl 25 MG/ML VIAL IM PRN (09:08)
[2019-01-22] MEDS ORDERED: hydrALAZINE 20 MG/ML VIAL ONE (09:31)
[2019-01-22] MEDS ORDERED: Iopamidol 370 76% 50 ML VIAL FS ONE (09:39)
[2019-01-22] MEDS ORDERED: Iopamidol 370 76% 100 ML VIAL ONE (09:39)
--- NOTE | 2019-01-22 09:59 | RAD ---
Exam: Chest one view HISTORY:Status post device placement Comparison: 01/20/2019 FINDINGS: Cardiac silhouette:Upper normal. Pacing device: Single lead left-sided transvenous defibrillator with lead positioned over the right v entricle. Aorta: Unremarkable Pulmonary vessels: Normal Costophrenic angles: Clear LUNGS: No masses or consolidation. Pneumothorax: None Osseous abnormalities: None IMPRESSION: 1. Interval placement of a left-sided transvenous defibrillator. No pneumothorax.
[2019-01-22] MEDS ORDERED: Sodium Chloride 0.9% 200 ML IV PRN (10:45)
[2019-01-22] MEDS ORDERED: Acetaminophen/Codeine 30-300mg Tablet PO PRN (10:45)
[2019-01-22] MEDS ORDERED: Nitroglycerin 0.4 MG TAB (25 Tab Bottle) SL PRN (10:45)
[2019-01-22] MEDS: Clopidogrel Bisulfate 75 MG TAB PO SCH (11:06)
[2019-01-22] MEDS: Aspirin 81 mg Enteric Coated Tablet PO SCH (11:06)
[2019-01-22] MEDS: Benzonatate 100 MG CAP PO PRN (14:17)
[2019-01-22] MEDS: Acetaminophen/Codeine 30-300mg Tablet PO PRN ×2 (14:17→23:30)
[2019-01-22] MEDS: Atorvastatin Calcium 40 MG TAB PO SCH (20:57)
[2019-01-23] MEDS ORDERED: Acetaminophen/Codeine 30-300mg Tablet PO PRN ×2 (01:00)
[2019-01-23] MEDS: CEFAZOLIN 2 GM in Premix Bag 1 BAG IVPB SCH ×2 (01:26→08:18)
[2019-01-23 05:48] LABS: Anion Gap 14 mmol/L (10-20); BUN (Urea Nitrogen) 4 mg/dL (7.0-18.7); Calc. Creatinine Clearance 144 mL/min (70-130); Carbon Dioxide 24 mmol/L (22-29); Chloride 99 mmol/L (98-107); Estimated GFR-MDRD Greater than 90; Glucose 97 mg/dL (70-105); Potassium 3.9 mmol/L (3.5-5.1); Sodium 133 mmol/L (136-145)
--- NOTE | 2019-01-23 06:42 | PDOC.FM ---
- Subjective Subjective: Some chest pain from AICD placement, otherwise pt has few complaints and is ready to go home. She denies SOB. - Objective MAR Reviewed: Yes Vital Signs & Weight: Vital Signs (12 hours) Temp Pulse Resp BP BP BP Pulse Ox 01/23/19 04:00 98.2 F 83 16 168/97 H 95 01/22/19 23:13 98.9 F 91 17 138/92 H 98 01/22/19 23:11 98 01/22/19 20:57 91 144/94 H 01/22/19 20:56 144/94 H 01/22/19 20:00 98 01/22/19 19:58 98.3 F 01/22/19 19:30 152/110 H Weight Admit Weight 97.522 kg Weight 93.213 kg Most Recent Monitor Data Heart Rate from ECG 100 NIBP 159/108 NIBP BP-Mean 125 Respiration from ECG 19 SpO2 97 I&O: 01/21/19 01/22/19 01/23/19 06:59 06:59 06:59 Intake Total 1933.5 640 Output Total 1435 965 900 Balance 498.5 -325 -900 Result Diagrams: 01/21/19 04:45 01/23/19 04:57 Phys Exam - Physical Examination Constitutional: NAD Up walking around her room HEENT: moist MMs, oral pharynx no lesions Neck: no JVD Respiratory: no wheezing, clear to auscultation bilateral Improved from before Cardiovascular: RRR, no significant murmur Gastrointestinal: soft, non-tender, no distention, positive bowel sounds Musculoskeletal: no edema, pulses present Neurological: non-focal, moves all 4 limbs Psychiatric: A&O x 3 Skin: cap refill <2 seconds Dx/Plan (1) Cardiac arrest Code(s): I46.9 - CARDIAC ARREST, CAUSE UNSPECIFIED Status: Acute (2) HTN (hypertension) Code(s): I10 - ESSENTIAL (PRIMARY) HYPERTENSION Status: Acute (3) Marijuana abuse Code(s): F12.10 - CANNABIS ABUSE, UNCOMPLICATED Status: Acute (4) Methamphetamine abuse Code(s): F15.10 - OTHER STIMULANT ABUSE, UNCOMPLICATED Status: Acute - Plan Plan: This is a 38 yo female with a pmh of CAD s/p bare metal stents in September 2018, HTN , HLD Cardiac arrest s/p Rosc, meth vs pna as cause -Extubated on 01/18 -Cardiology consulted -Continue aspirin, plavix, atorvastatin -Heart cath shows 60% stenosis of RCA, no stents placed. 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 Pt seems open to AA UDS positive for meth/marijuana Addendum - Attending - Attending Attestation Date/Time: 01/23/191947 I personally evaluated the patient and discussed the management with Dr. Johnson I agree with the History, Examination, Assessment and Plan documented above with any addition or exceptions noted below - Patient without complaints. Denies any chest pain, SOB. Afebrile VSS. A/P: 1) S/P Cardiac arrest s/p AICD placement- doing well. Plan to d/c home today. 2) Substance abuse- referred to recovery programs.
[2019-01-23 08:17] VITALS: TEMP 99.1
[2019-01-23] MEDS: Carvedilol 6.25 MG TAB PO SCH (08:18)
[2019-01-23] MEDS: Multivitamin W/ Minerals 1 TAB PO SCH (08:18)
[2019-01-23] MEDS: Aspirin 81 mg Enteric Coated Tablet PO SCH (08:19)
[2019-01-23] MEDS: Folic Acid 1 MG TAB PO SCH (08:19)
[2019-01-23] MEDS: Lisinopril 5 MG TAB PO SCH (08:19)
[2019-01-23] MEDS: Clopidogrel Bisulfate 75 MG TAB PO SCH (08:19)
[2019-01-23] MEDS: hydrALAZINE 25 MG TAB PO SCH (08:19)
[2019-01-23] MEDS: Magnesium Oxide 400 MG TAB PO SCH (08:19)
[2019-01-23] MEDS: Thiamine 100 MG TAB PO SCH (08:23)
--- NOTE | 2019-01-23 11:02 | PDOC.CPN ---
- Subjective Date: 01/23/19 (EP follow up) Time: 08:00 Interval history: feels well this AM. eager to go home. No complications overnight after ICD implant. - Review of Systems General: denies: fever/chills, weight/appetite/sleep changes, night sweats, fatigue Respiratory: denies: cough, congestion, shortness of breath, exercise intolerance Cardiovascular: denies: chest pain, palpitation, edema, paroxysmal nocturnal dyspnea, orthopnea Gastrointestinal: denies: nausea, vomiting, diarrhea, constipation, abd pain, GI bleeding - Objective Allergies/Adverse Reactions: Allergies Allergy/AdvReac Type Severity Reaction Status Date / Time No Known Allergies Allergy Verified 01/17/19 02:23 Visit Medications: Current Medications Vital Signs & Weight: Vital Signs Temp Pulse Resp BP BP Pulse Ox 01/23/19 08:13 99.1 F 102 H 18 133/99 H 98 01/23/19 04:00 98.2 F 83 16 168/97 H 95 01/22/19 23:13 98.9 F 91 17 138/92 H 98 01/22/19 23:11 98 Admit Weight 215 lb Weight 205 lb 8 oz - Physical Exam General: alert & oriented x3, appears well, no apparent distress HEENT: mucus membranes moist Neck: supple neck, midline trachea, no JVD/HJR, no masses, no bruit, no lymphadenopathy, no thromegaly Cardiac: regular rate and rhythm, no murmur, regular rate, regular rhythm Lungs: clear to auscultation, normal breath sounds, normal exam, no wheeze, rales, rhonchi Neuro: grossly intact Skin: other (incision healing nicely. No drainge. minimal swelling. minimal bruising. edges approximated) - Labs Result Diagrams: 01/21/19 04:45 01/23/19 04:57 Troponin/CKMB CK-MB (CK-2) 1.7 ng/mL (0-6.6) 01/16/19 21:06 Troponin I 0.106 ng/mL (< 0.028) H 01/17/19 06:00 - Telemetry Sinus rhythms and dysrhythmias: sinus rhythm - Assessment/Plan Assessment/Plan: 1. s/p VT arrest 2. CAD -stents earlier this year but C from 01/22 was stable 3. S-ICD - implanted 01/22. Check is stable this AM. OK to DC home on anbx, rx in front of chart). Will arrange for 2 week wound check.
--- NOTE | 2019-01-23 11:07 | PDOC.CPN ---
- Subjective Date: 01/23/19 Time: 11:12 Interval history: The pt seen and examined. No overnight events. No cardiac complaints. - Objective Allergies/Adverse Reactions: Allergies Allergy/AdvReac Type Severity Reaction Status Date / Time No Known Allergies Allergy Verified 01/17/19 02:23 Visit Medications: Current Medications Acetaminophen (Tylenol) 1,000 mg PO Q6H PRN PRN Reason: Moderate to Severe Pain (6-10) Last Admin: 01/22/19 04:19 Dose: 1,000 mg Acetaminophen/Codeine Phosphate (Tylenol #3) 1 tab PO Q4H PRN PRN Reason: Mild Pain (1-3) Acetaminophen/Codeine Phosphate (Tylenol #3) 2 tab PO Q4H PRN PRN Reason: Moderate Pain (4-6) Last Admin: 01/22/19 23:30 Dose: 2 tab Acetaminophen/Codeine Phosphate (Tylenol #3) 1 tab PO Q4H PRN PRN Reason: Mild Pain (1-3) Acetaminophen/Codeine Phosphate (Tylenol #3) 2 tab PO Q4H PRN PRN Reason: Moderate Pain (4-6) Aspirin (Ecotrin) 81 mg PO DAILY [facility] Last Admin: 01/23/19 08:19 Dose: 81 mg Atorvastatin Calcium (Lipitor) 40 mg PO HS [facility] Last Admin: 01/22/19 20:57 Dose: 40 mg Benzonatate (Tessalon) 100 mg PO Q4H PRN PRN Reason: Cough Last Admin: 01/22/19 14:17 Dose: 100 mg Carvedilol (Coreg) 6.25 mg PO BID [facility] Last Admin: 01/23/19 08:18 Dose: 6.25 mg Cephalexin (Keflex) 500 mg PO QID [facility] Clopidogrel Bisulfate (Plavix) 75 mg PO DAILY [facility] Last Admin: 01/23/19 08:19 Dose: 75 mg Folic Acid (Folvite) 1 mg PO DAILY [facility] Last Admin: 01/23/19 08:19 Dose: 1 mg Hydralazine HCl (Apresoline) 10 mg SLOW IVP Q4H PRN PRN Reason: SBP Greater Than 180 Hydralazine HCl (Apresoline) 25 mg PO TID [facility] Last Admin: 01/23/19 08:19 Dose: 25 mg Potassium Chloride 40 meq/ (Sodium Chloride) 270 mls @ 135 mls/hr IVPB ASDIR PRN PRN Reason: FOR SERUM K+ 2.5 - 3.5 Potassium Chloride 40 meq/ (Device) 100 mls @ 50 mls/hr IVPB ASDIR PRN PRN Reason: FOR SERUM K+ 2.5 - 3.5 Magnesium Sulfate 1 gm/ Sodium (Chloride) 102 mls @ 102 mls/hr IV PRN PRN PRN Reason: MAG LEVEL 1.4 - 2.0 Magnesium Sulfate 2 gm/ Device 50 mls @ 50 mls/hr IVPB ASDIR PRN PRN Reason: MAGNESIUM < 1.4 Potassium Phosphate 9 mmol/ (Sodium Chloride) 103 mls @ 25.75 mls/hr IVPB ASDIR PRN PRN Reason: Phosphate 1.0-1.8 Potassium Phosphate 12 mmol/ (Sodium Chloride) 254 mls @ 63.5 mls/hr IV ASDIR PRN PRN Reason: Serum phosphate 0.5-0.9 Potassium Phosphate 15 mmol/ (Sodium Chloride) 255 mls @ 63.75 mls/hr IV ASDIR PRN PRN Reason: Serum Phos < 0.5 Dexmedetomidine HCl 400 mcg/ (Sodium Chloride) 100 mls @ 0 mls/hr IVPB [facility] ; Protocol Last Admin: 01/20/19 06:09 Dose: 100 mls Nitroglycerin/Dextrose (Nitroglycerin 50 Mg/250 Ml Bot) 250 mls @ 0 mls/hr IVPB [facility]; Protocol Last Admin: 01/19/19 21:43 Dose: 250 mls Nicardipine HCl 25 mg/ Sodium (Chloride) 250 mls @ 0 mls/hr IVPB [facility]; Protocol Last Admin: 01/20/19 00:46 Dose: 250 mls Iron/Minerals/Multivitamins (Theragran M) 1 tab PO DAILY [facility] Last Admin: 01/23/19 08:18 Dose: 1 tab Labetalol HCl (Normodyne) 10 mg SLOW IVP Q4H PRN PRN Reason: SBP Greater Than 180 Lisinopril (Zestril) 5 mg PO DAILY [facility] Last Admin: 01/23/19 08:19 Dose: 5 mg Magnesium Oxide (Magnesium Oxide) 400 mg PO DAILY [facility] Last Admin: 01/23/19 08:19 Dose: 400 mg Magnesium Oxide (Magnesium Oxide) 400 mg PO BIDPRN PRN PRN Reason: FOR SERUM MAG 1.4 - 2.0 Magnesium Oxide (Magnesium Oxide) 800 mg PO PRN PRN PRN Reason: FOR SERUM MAG < 1.4 Miscellaneous Medication (Phos-Nak) 1 pkt PO TIDPRN PRN PRN Reason: FOR PHOS LEVEL 1.0 - 1.8 Miscellaneous Medication (Phos-Nak) 2 pkt PO TIDPRN PRN PRN Reason: FOR PHOS LEVEL 0.5 - 1.0 Nitroglycerin (Nitrostat) 0.4 mg SL Q5MIN PRN PRN Reason: Chest Pain Ccu Electrolyte (Replacement Protocol) 0 each FS PRN PRN PRN Reason: FOR ELECTROLYTE REPLACEMENT Potassium Chloride (K-Dur) 40 meq PO ASDIR PRN PRN Reason: FOR SERUM K+ 2.5 - 3.5 Last Admin: 01/21/19 06:23 Dose: 40 meq Potassium Chloride (Klor-Con) 40 meq PER TUBE ASDIR PRN PRN Reason: FOR SERUM K+ 2.5-3.5 Sodium Chloride (Flush - Normal Saline) 10 ml IVF Q12HR [facility] Last Admin: 01/23/19 08:23 Dose: 10 ml Sodium Chloride (Flush - Normal Saline) 10 ml IVF PRN PRN PRN Reason: Saline Flush Thiamine HCl (Thiamine) 100 mg PO DAILY [facility] Last Admin: 01/23/19 08:23 Dose: 100 mg Vital Signs & Weight: Vital Signs Temp Pulse Resp BP BP Pulse Ox 01/23/19 08:13 99.1 F 102 H 18 133/99 H 98 01/23/19 04:00 98.2 F 83 16 168/97 H 95 01/22/19 23:13 98.9 F 91 17 138/92 H 98 01/22/19 23:11 98 Admit Weight 215 lb Weight 205 lb 8 oz - Physical Exam General: alert & oriented x3 (However, still slow to response) Neck: supple neck Cardiac: regular rate and rhythm, S1/S2 Lungs: clear to auscultation Abdomen: unremarkable Skin: clear Musculoskeletal: normal range of motion - Labs Result Diagrams: 01/21/19 04:45 01/23/19 04:57 Troponin/CKMB CK-MB (CK-2) 1.7 ng/mL (0-6.6) 01/16/19 21:06 Troponin I 0.106 ng/mL (< 0.028) H 01/17/19 06:00 - Telemetry Sinus rhythms and dysrhythmias: sinus rhythm - Assessment/Plan Assessment/Plan: 1. Out of hopsital arrest with S/p AICD placement on 01/22/2019 - stable with RA ; 2. CAD with hx of LHC with BMS stent x2 in Lt Cx; s/p LHC on 01/21/2019 with 20 % instent stenosis in Lt Cx and 60% in RCA with EF 50-55% - On BBlocker, Plavix , ASA, and Statin. 3. Hypoxic encephalopathy - slightly improving today 4. HTN urgency - stable with current meds 5. Tobacco, ETOH, and Illicit drug abuse - smoking, ETOH and Illicit drug cessation education given to the pt. MAR reviewed * Echo in 01/2019 with EF 30-35%, mild LVH, mild TR, and trace MR. * S/p LHC on 01/21/2019 with 20% instent stenosis in Lt Cx and 60% in RCA with EF 50-55% * From Cardiac standpoint, the pt is stable to d/c home. The pt will f/u with Dr Pamela juan within 1 wk.
[2019-01-23 11:53] LABS: ALT (SGPT) 43 U/L (8-55); AST (SGOT) 20 U/L (5-34)
[2019-01-23 11:59] VITALS: BP 144/107
[2019-01-23] MEDS ORDERED: Cephalexin 250 MG CAP PO SCH (13:00)
--- NOTE | 2019-01-23 23:06 | DIS ---
DATE OF ADMISSION: 01/17/2019 DATE OF DISCHARGE: 01/23/2019 ADMITTING ATTENDING: Gonzales Clay MD RESIDENT: Edmundo Johnson DO CONSULTS: 1. Tami Ayala MD. 2. Tim Landaverde MD. 3. Efren Telles MD. 4. Liane Ledbetter. PROCEDURES PERFORMED: 1. Echocardiogram showing an EF of 30% to 35%. Left ventricular size mildly increased, otherwise grossly normal. 2. CT scan of abdomen and pelvis shows no acute pathology identified. 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 3. Chest x-ray one-view shows right lower lobe aspiration opacity, status post intubation with endotracheal tube. 4. CAT scan of brain without contrast showing no acute intracranial findings. Paranasal sinus disease. Secretions filling nasal pharyngeal airway. 5. Cervical spine CT without contrast showing no acute fracture or traumatic subluxation. 6. Cardiac catheterization showing mild impaired ventricular function, disease of the left circumflex coronary artery, prior stent patent, distal 20% in-stent restenosis, RCA mild and distal 60% stenosis, no flow-limiting disease, EF of 50% to 55%, recommending PTCA/stents to the RCA in the future. Symptomatic abnormal stress test. Plan for EP study. AICD placement. 7. AICD placement. 8. Chest x-ray showing improved aeration in the lung bases. 9. Chest x-ray shows no acute cardiopulmonary abnormalities that was on 01/20 and 01/22. Chest x-ray shows interval placement of left-sided transvenous defibrillator. No pneumothorax. PRIMARY DIAGNOSES: 1. Ventricular fibrillation with cardiac arrest, status post return of spontaneous circulation. 2. Hypertensive urgency, resolved. 3. Coronary artery disease with history of stents. 4. Tobacco, meth, marijuana abuse. 5. Heart failure with reduced ejection fraction. SECONDARY DIAGNOSES: 1. Ventricular fibrillation with cardiac arrest, status post return of spontaneous circulation. 2. Hypertensive urgency, resolved. 3. Coronary artery disease with history of stents. 4. Tobacco, meth, marijuana abuse. 5. Heart failure with reduced ejection fraction. DISCHARGE MEDICATIONS: 1. Keflex 500 mg p.o. q.i.d. for 3 days. 2. Atorvastatin 40 mg p.o. at bedtime. 3. Tylenol 500 mg p.o. daily. 4. Aspirin 81 mg p.o. daily. 5. Carvedilol 6.25 mg p.o. b.i.d. 6. Clopidogrel 75 mg p.o. daily. 7. Hydralazine 25 mg p.o. t.i.d. 8. Lisinopril 5 mg p.o. daily. DISCONTINUED MEDICATIONS: None. BRIEF HISTORY OF PRESENT ILLNESS/HOSPITAL COURSE: This 38-year-old female with past medical history of coronary artery disease with two bare metal stents placed in September of 2018, with a past medical history as above, who presents to the ER after ROSC following ventricular fibrillation at home. Boyfriend reports performing CPR prior to EMS arrival. The patient achieved ROSC in the field via EMS brought to the ER. The patient was admitted, intubated, unstable. The patient had initially transaminitis, as well as hypophosphatemia and hypomagnesemia that were improved with fluid resuscitation as well as ventilator support. The patient was extubated on 01/18. The patient had a heart catheterization on 01/22 as detailed above. AICD placed on 01/22 as well. During the patient's recovery, she improved, suffering from some confusion and delirium from her condition. The patient was treated with redirection of Ativan at the beginning. There was also concern of alcohol withdrawal. MINDS protocol was set up. The patient received Ativan for this as well. At the time of admission, the patient has been two days without requiring Ativan as well as having a heart cath with above mentioned details and AICD placement. The patient was given information regarding drug rehab and alcohol abstinence by Case Management. The patient was discharged in stable condition. Discharged to follow up with her PCP Dr. Ayala and Dr. Landaverde as instructed. Dr. Simental is the PCP. DISPOSITION: Stable. DISCHARGE INSTRUCTIONS: 1. Location: Home. 2. Diet: Heart healthy. 3. Activity: Cardiopulmonary limits. 4. Followup: As listed above. Job ID: [id number]
--- NOTE | 2019-01-23 23:22 | EKG ---
Test Reason : POST CATH/DEFIB Blood Pressure : / mmHG Vent. Rate : 091 BPM Atrial Rate : 091 BPM P-R Int : 152 ms QRS Dur : 090 ms QT Int : 386 ms P-R-T Axes : 060 -22 059 degrees QTc Int : 474 ms Sinus rhythm with occasional Premature ventricular complexes Lateral infarct (cited on or before 16-JAN-2019) Inferior-posterior infarct (cited on or before 24-SEP-2018) Abnormal ECG When compared with ECG of 17-JAN-2019 01:34, Premature ventricular complexes are now Present Nonspecific T wave abnormality now evident in Inferior leads T wave amplitude has decreased in Anterior leads Confirmed by Mary CASTREJON ([id number]) on 01/23/2019 11:21:57 PM Referred By: GARCÍA Confirmed By:Mary CASTREJON
== END 2019-01-23 12:35 | disposition home or self-care (01) | DRG 224 ==
LOC: ERS 20:47 → CCU 01-17 00:53 → IMCU/EMU 01-21 10:38 → 2NO 01-23 00:10
PROVIDERS: ADMIT Family Medicine; ATTEND Family Medicine
PROC: 5A1935Z Respiratory Ventilation, Less than 24 Consecutive Hours (ICD-10-PCS; 2019-01-17)
PROC: 0JH608Z Insertion of Defibrillator Generator into Chest Subcutaneous Tissue and Fascia, Open Approach (ICD-10-PCS; principal; 2019-01-22)
PROC: 0JH60FZ Insertion of Subcutaneous Defibrillator Lead into Chest Subcutaneous Tissue and Fascia, Open Approach (ICD-10-PCS; 2019-01-22)
PROC: 4A023N7 Measurement of Cardiac Sampling and Pressure, Left Heart, Percutaneous Approach (ICD-10-PCS; 2019-01-22)
PROC: B2111ZZ Fluoroscopy of Multiple Coronary Arteries using Low Osmolar Contrast (ICD-10-PCS; 2019-01-22)
DX: I49.01 Ventricular fibrillation (principal); J18.1 Lobar pneumonia, unspecified organism; J96.90 Respiratory failure, unspecified, unspecified whether with hypoxia or hypercapnia; F10.239 Alcohol dependence with withdrawal, unspecified; I77.4 Celiac artery compression syndrome; Z51.5 Encounter for palliative care; G93.1 Anoxic brain damage, not elsewhere classified; I25.810 Atherosclerosis of coronary artery bypass graft(s) without angina pectoris; I46.2 Cardiac arrest due to underlying cardiac condition; I16.0 Hypertensive urgency; I25.10 Atherosclerotic heart disease of native coronary artery without angina pectoris; F12.10 Cannabis abuse, uncomplicated; F17.210 Nicotine dependence, cigarettes, uncomplicated; F15.10 Other stimulant abuse, uncomplicated; E83.39 Other disorders of phosphorus metabolism; E83.42 Hypomagnesemia; R74.0 Nonspecific elevation of levels of transaminase and lactic acid dehydrogenase [LDH]; I10 Essential (primary) hypertension; E78.5 Hyperlipidemia, unspecified; I42.9 Cardiomyopathy, unspecified; F41.9 Anxiety disorder, unspecified; Z95.5 Presence of coronary angioplasty implant and graft; Z71.41 Alcohol abuse counseling and surveillance of alcoholic; I25.2 Old myocardial infarction
CPT/HCPCS: 36415; 51702; 70450; 71045; 72125; 74177; 75820; 80048; 80053; 80306; 80307; 81003; 81015; 82550; 82553; 82805; 83605; 83735; 84100; 84145; 84450; 84460; 84484; 84703; 85007; 85025; 85027; 87040; 87149; 87804; 87807; 93005; 93010; 93306; 93454; 93458; 94002; 94003; 94760; 96365; 96366; 96367; 96368; 96375; 96376; 99292; C1722; C1777; J0360; J0690; J1630; J1644; J1650; J1956; J2001; J2060; J2250; J2270; J2543; J2704; J3010; J3370; J3411; J3475; J3490; J7050; Q9966; Q9967; S0028

== ENCOUNTER 2024-01-16 21:10 | Emergency (ER) | payer SELFPAY ==
[2024-01-16] MEDS ORDERED: Calcium Chloride 1 GM/10 ML Abboject SYRINGE ONE (21:11)
[2024-01-16] MEDS ORDERED: Amiodarone 150 MG/3 ML VIAL ONE (21:11)
[2024-01-16] MEDS ORDERED: EPINEPHrine 1 MG/10 ML Abboject SYRINGE ONE (21:11)
[2024-01-16] MEDS ORDERED: Sodium Bicarb 50 MEQ/50 ML Abboject 8.4% SYRINGE ONE (21:11)
== END 2024-01-16 21:21 | disposition expired ==
LOC: ERS 21:10
DX: I46.9 Cardiac arrest, cause unspecified (principal); F17.210 Nicotine dependence, cigarettes, uncomplicated; F10.20 Alcohol dependence, uncomplicated; I25.10 Atherosclerotic heart disease of native coronary artery without angina pectoris
CPT/HCPCS: 92950; J0171; J0282